=== PATIENT | female | born 1930 | race Caucasian/White ===

== ENCOUNTER 2017-10-12 19:57 | Inpatient (IN) | payer MEDICARE ==
--- NOTE | 2017-10-12 20:48 | RAD ---
INDICATION: Left hip fracture COMPARISON: None TECHNIQUE: An AP view of the pelvis and AP views of the hip in neutral and abducted position were obtained FINDINGS: Bones: There is an intratrochanteric fracture of the left femur with mild varus angulation. There is a component of the fracture extending from the lesser trochanter through the proximal lateral femoral diaphysis. No other fractures are evident. Joint spaces: The hips articulate normally. The joint spaces are preserved. SI joints/symphysis: The SI joints and symphysis are intact. Other: None IMPRESSION: PROXIMAL LEFT FEMORAL FRACTURE DESCRIBED
--- NOTE | 2017-10-12 20:49 | RAD ---
INDICATION: Hip fracture COMPARISON: None TECHNIQUE: A single PA view is submitted. FINDINGS: Bones/Soft Tissues: There are no acute bony findings. Cardiomediastinal: The cardiomediastinal silhouette is normal. Lungs: There are no infiltrates. Pleura: There are no pleural effusions. Other: None IMPRESSION: NO ACTIVE DISEASE.
[2017-10-12] MEDS ORDERED: HYDROcodone/ACETAMIN 5-325 MG* 1 TAB PO PRN (21:31)
[2017-10-12] MEDS ORDERED: Morphine INJ* 2 MG/ML 1 ML SYRINGE (TWO MG - NEW SYRINGE VERSION) IV PRN (21:31)
[2017-10-12] MEDS ORDERED: amLODIPine TAB* 5 MG PO ONE (21:31)
[2017-10-12] MEDS ORDERED: Ondansetron INJ* 2 MG/ML VIAL IV PRN (21:31)
[2017-10-12 21:59] LABS: Hematocrit 45 % (35-47); Hemoglobin 15.4 g/dl (12.0-16.0); Mean Corpuscular HGB Conc 34 g/dl (31-36); Mean Corpuscular Hemoglobin 31 pg (27-31); Mean Corpuscular Volume 91 fL (80-97); Mean Platelet Volume 9 um3 (7.4-10.4); Red Blood Count 4.96 10^6/ul (4.0-5.4); Red Cell Distribution Width 13 % (10.5-15); White Blood Count 13.7 10^3/ul (3.5-10.8)
[2017-10-12 22:14] LABS: Albumin 4.7 g/dL (3.2-5.2); BUN/Creatinine Ratio 19.1 (8-20); Calcium 9.8 mg/dL (8.6-10.3); EGFR African American 77.3 (>60); EGFR Non-African American 60.1 (>60); Globulin 2.7 g/dL (2-4); Potassium 3.4 mmol/L (3.5-5.0); Total Bilirubin 0.5 mg/dL (0.2-1.0); Total Protein 7.4 g/dL (6.4-8.9)
--- NOTE | 2017-10-12 22:14 | ED ---
Sangita Izquierdo Alfonso, scribed for Yasmani Quintana MD on 10/12/17 at 2207 . Adult Trauma - HPI Summary HPI Summary: This patient is an 87 year old F BIB[facility] to [facility] accompanied by son s/p fell out of elevator backwards onto floor landing on L hip at 19:00 today. Patient could not ambulate after the fall. Patient is not on blood thinners or any other medications. The patient rates the pain 1/10 in severity. Symptoms aggravated by movement. Symptoms alleviated by nothing. Patient reports left hip pain (pain does not radiate). Patient denies abdominal pain, dyspnea, wrist or elbow pain, head trauma, and LOC. - History of Current Complaint Chief Complaint: EDHipPelvisInjury Stated Complaint: FALL/LT HIP PAIN Time Seen by Provider: 10/12/17 20:01 Hx Obtained From: Patient Mechanism of Injury: Fall Ambulatory at the Scene: No Loss of Consciousness: no loss of consciousness Onset of Pain: Immediate, Post Accident Current Severity: Mild Pain Intensity: 1 Pain Scale Used: 0-10 Numeric Aggravating Factor(s): Movement Alleviating Factor(s): Nothing Associated Signs & Symptoms: Positive: Other: - left hip pain (pain does not radiate). Patient denies abdominal pain, dyspnea, wrist or elbow pain, head trauma, and LOC. - Allergy/Home Medications Allergies/Adverse Reactions: Allergies Allergy/AdvReac Type Severity Reaction Status Date / Time Cephalexin [From Keflex] Allergy Unknown Verified 10/12/17 21:38 Reaction Details Home Medications: Home Medications NK [No Home Medications Reported] 10/12/17 [History Confirmed 10/12/17] PMH/Surg Hx/FS Hx/Imm Hx Musculoskeletal History: Denies: Hx Osteoporosis Opthamlomology History: Denies: Hx Legally Blind Infectious Disease History: No Infectious Disease History: Denies: Traveled Outside the [place] in Last 30 Days - Family History Known Family History: Positive: Cardiac Disease, Other - Parkinson's - paternal - Social History Alcohol Use: Occasionally Hx Substance Use: No Substance Use Type: Reports: None Hx Tobacco Use: No Smoking Status (MU): Never Smoked Tobacco Review of Systems Negative: Fever Positive: Other - Negative dyspnea Negative: Abdominal Pain Positive: Other - fall, L hip pain negative - wrist pain Neurological: Other - negative LOC, trauma All Other Systems Reviewed And Are Negative: Yes Physical Exam - Summary Physical Exam Summary: General: well-appearing, no pain distress Skin: warm, color reflects adequate perfusion, dry Head: normal Eyes: EOMI, JOHANNY ENT: normal Neck: supple, nontender Respiratory: CTA, breath sounds present Cardiovascular: RRR Abdomen: soft, nontender Bowel: present Musculoskeletal: strength/ROM intact, tender L greater trochanter Neurological: normal, sensory/motor intact, A&O x3 Psychological: affect/mood appropriate Triage Information Reviewed: Yes Vital Signs On Initial Exam: Initial Vitals Temp Pulse Resp BP Pulse Ox 97.6 F 73 18 197/68 99 10/12/17 20:02 10/12/17 20:02 10/12/17 20:02 10/12/17 20:02 10/12/17 20:02 Vital Signs Reviewed: Yes - Jennyfer Coma Scale Coma Scale Total: 15 Diagnostics - Vital Signs Vital Signs Temp Pulse Resp BP Pulse Ox 10/12/17 20:02 97.6 F 73 18 197/68 99 - Laboratory Lab Results: Lab Results 10/12/17 10/12/17 Range/Units 21:45 21:45 WBC 13.7 H (3.5-10.8) 10^3/ul RBC 4.96 (4.0-5.4) 10^6/ul Hgb 15.4 (12.0-16.0) g/dl Hct 45 (35-47) % MCV 91 (80-97) fL MCH 31 (27-31) pg MCHC 34 (31-36) g/dl RDW 13 (10.5-15) % Plt Count 156 (150-450) 10^3/ul MPV 9 (7.4-10.4) um3 Neut % (Auto) 85.8 H (38-83) % Lymph % (Auto) 9.0 L (25-47) % [place] % (Auto) 4.7 (1-9) % Eos % (Auto) 0.3 (0-6) % Baso % (Auto) 0.2 (0-2) % Absolute Neuts (auto) 11.8 H (1.5-7.7) 10^3/ul Absolute Lymphs (auto) 1.2 (1.0-4.8) 10^3/ul Absolute Monos (auto) 0.6 (0-0.8) 10^3/ul Absolute Eos (auto) 0 (0-0.6) 10^3/ul Absolute Basos (auto) 0 (0-0.2) 10^3/ul Absolute Nucleated RBC 0 10^3/ul Nucleated RBC % 0 Blood Type Pending Antibody Screen Pending Result Diagrams: 10/12/17 21:45 Lab Statement: Any lab studies that have been ordered have been reviewed, and results considered in the medical decision making process. - Radiology Pelvis XR Radiology Interpretation Completed By: Radiologist - PROXIMAL LEFT FEMORAL FRACTURE DESCRIBED. ED Physician has reviewed this report. CXR Radiology Interpretation Completed By: Radiologist - NO ACTIVE DISEASE. ED physician has reviewed this report. - EKG 2133 EKG Rhythm: Sinus Rhythm - at [address] Segment: Normal Ectopy: None Adult Trauma Course/Dx - Course Course Of Treatment: DISCUSSED WITH DR SOFIA, ORTHOPEDICS. ADMIT HOSPITALIST. - Diagnoses Provider Diagnoses: Fracture of left hip Discharge - Discharge Plan Condition: Stable Disposition: ADMITTED TO [facility] Referrals: Reinaldo Cunningham MD [Primary Care Provider] - The documentation as recorded by the Sangita guajardo Alfonso accurately reflects the service I personally performed and the decisions made by me, Yasmani Quintana MD.
[2017-10-12 23:08] LABS: Urine Bacteria Absent (Absent)
[2017-10-12 23:33] LABS: Urine Bilirubin Negative (Negative); Urine Glucose Negative (Negative); Urine Nitrite Negative (Negative)
[2017-10-13] MEDS: Heparin VIAL(*) 5000 UNITS/ML VIAL (FIVE THOUSAND) SUBCUT SCH ×3 (00:41→13:14)
--- NOTE | 2017-10-13 03:53 | HP ---
CC: Dr. Cunningham; Dr. Ayers * HISTORY AND PHYSICAL: DATE OF ADMISSION: 10/12/17 PRIMARY CARE PROVIDER: Dr. Cunningham. ATTENDING PHYSICIAN WHILE IN THE HOSPITAL: Dr. Jewel Giraldo * (report dictated by Rupert Ledezma NP) CONSULTING ORTHOPEDIC SURGEON: Dr. Ayers. CHIEF COMPLAINT: Fall. HISTORY OF PRESENT ILLNESS: Ms. Lizbet Delarosa is an 87-year-old female patient. She is fairly healthy. She has a history of syncope in the past. According to her description, it sounds like it could be related to orthostatic hypotension, history of hypertension, and she has a history of a mitral valve prolapse. She comes into our ER today. She was at her alevism and she was in an elevator that has 2 doors and she was leaning up against what she thought was on to the pardo of the elevator, but unfortunately was the door and there was another person in the elevator, they had pressed the open door button and the door opened and she had fallen when the door had opened and she landed on her left side. She had no chest pain prior to or after the event. She said she did not pass out, she did not hit her head, she landed on her left hip. She remembers the entire fall. She thought that she was just going to be able to get up and walk home and hoping to go about her business, but she tried getting up and she had a significant amount of pain moving the leg at all. So, at that point, the bystander that was there had called the ambulance services and the patient was brought into the hospital. She says she is fairly healthy to her knowledge, she does not take any routine medications, and she says she typically walks up 3 flights of stairs daily and does not get chest pain or shortness of breath with this. The patient came in, was evaluated, ultimately found to have a left hip fracture and we were asked to evaluate for admission. PAST MEDICAL HISTORY: Significant for: 1. Hypertension. 2. Syncope. 3. Mitral valve prolapse. PAST SURGICAL HISTORY: She has had an oophorectomy, she has had an ovarian cyst removal, and she has had a tonsillectomy. MEDICATIONS: Home meds, she says currently she is not taking any medications at this point. ALLERGIES: She is allergic to KEFLEX and BAND-AID. FAMILY HISTORY: Mother had a history of dementia. Father had Parkinson's. SOCIAL HISTORY: She does not smoke, does not drink. If she does drink, it is very rarely. Surrogate decision maker is her son-in-law, Forest Andrews. REVIEW OF SYSTEMS: There is no documented fever. She denied having any significant weight change. No rhinorrhea, no sore throat, no thyroid enlargement. Denied having any chest pain. There was no orthopnea, no nocturnal dyspnea. There is no abdominal pain. No nausea, no vomiting. No dysuria, no frequency. There was no seizure, no loss of consciousness. No pruritus and no skin ulcerations. Review of 14 systems completed, all others negative. PHYSICAL EXAMINATION GENERAL: At this time, Ms. Lizbet Delarosa is an 87-year-old female patient. She appears to be well-nourished, well-developed. She is sitting in the ED stretcher. She does not appear to be in any acute distress. VITAL SIGNS: Blood pressure 197/68, pulse 73, respirations 18, O2 sat 99%, and temperature 97.6. HEENT: Head atraumatic and normocephalic. Eyes: EOMs intact. Sclerae anicteric, not pale. Throat: Oral mucosa appears to be moist. No oropharyngeal erythema. NECK: Supple. LUNGS: Clear to auscultation bilaterally. No wheezes, rales, or rhonchi. HEART: Sounds S1 and S2. Regular, rate, and rhythm. No murmurs, rubs, or gallops. ABDOMEN: Soft, flat, and nontender. Bowel sounds are present. EXTREMITIES: Pulses 2+ throughout. Distal CSM checks are intact to the left lower extremity and right lower extremity. The left lower extremity is rotated. NEUROLOGIC: The patient is awake, alert, and oriented x3. Tongue midline. Universal Grinder Operator are equal. No gross focal deficits. SKIN: Intact. DIAGNOSTIC STUDIES/LAB DATA: The labs today are pending. She did have a chest x-ray obtained today which revealed no active disease. She did have a hip and pelvis, x-ray which revealed proximal left femur fracture as described. EKG pending and labs are pending. Old medical records were reviewed. ASSESSMENT AND PLAN: Ms. Lizbet Delarosa is an 87-year-old female patient coming into the ED today with complaints of mechanical fall. She was found to have a left hip fracture. We were asked to evaluate for admission. She will be admitted under observation status for: 1. Left hip fracture. At this point, Dr. Ayers has evaluated the patient. The patient will require an open reduction internal fixation of that left hip. At this point, she does have a pretty good exercise capacity. She is able to walk up 3 flights of stairs with no chest pain or shortness of breath. She is pretty active. I think if her EKG and chest x-ray are stable, then she will be medically optimized with the exception that her blood pressure right now is in the 190s systolically, which could be from the pain, so I am going to try to get her pain under control. I am going to give her a little bit of Norvasc. My goal for her would try to be right between 140 to 150 range and will follow this closely, but if we can get the blood pressure down and the EKG and chest x- ray look okay, I do not think, we do not need any further optimization. 2. Hypertension. Again, I am going to give her 5 of Norvasc right now. She has not been on blood pressure meds because in the past she has had syncopal episodes with orthostasis. It sounds like according to her description but will try to get records from Dr. Cunningham to help us with that. I do not want to be too aggressive with her blood pressure medications, as I do not want her to synopsize, so I would like to get her down to 140 to 150 range if possible. 3. Mitral valve prolapse. At this point, not an active issue. Follow with primary. 4. DVT prophylaxis. She is a high risk. She will be placed on heparin subcu. 5. Code status. Full code. 6. Fluids, electrolytes, and nutrition. She can have a heart-healthy diet. TIME SPENT: On admission 60 minutes, greater than half the time was spent face- to- face with the patient obtaining the history and physical, other half the time spent going over the plan of care with the patient, implementing the plan of care. I did discuss the plan of care with my attending, Dr. Giraldo; he is in agreement. RUPERT LEDEZMA, MELLISA [id number]/[facility] #: [id number] [place]
--- NOTE | 2017-10-13 03:53 | CONS ---
CONSULTATION NOTE: DATE OF CONSULT: 10/12/17 REASON FOR CONSULTATION: Left hip fracture. HISTORY OF PRESENT ILLNESS: The patient is an 87-year-old woman who lives alone in the [facility] [address], with ambulation without assistive device, who presents to the emergency department at [facility] this evening, status post a fall at 7 p.m. in an elevator. The patient states that she was in an elevator with doors opening on either side. She was leaning against one door and did not realize that it was a door in fact. When the door opened, she fell and landed on her left hip. The patient was brought in by ambulance when she had difficulty bearing any weight on that left lower extremity. No history of left hip pain. The patient presents to the emergency department with her son-in-law, who is a local primary care physician. The patient has no other complaints of other areas of body pain. Denies head or neck trauma, loss of consciousness with the fall. PAST MEDICAL HISTORY: Hypertension, mitral valve prolapse, history of syncopal episodes, thought to be orthostatic hypotension. PAST SURGICAL HISTORY: Excision of ovarian cyst, oophorectomy. MEDICATIONS: None. ALLERGIES: Question of KEFLEX allergy, unknown reaction. SOCIAL HISTORY: Lives alone. Walks up 3 flights of stairs per day without any difficulty. No assistive device. She is very active with a large pilot station of friends. Multiple community type and social events, although no sports described. PHYSICAL EXAMINATION: At 8:02 p.m. on October 12, the vitals were 97.6 degrees Fahrenheit, heart rate 73, blood pressure 197/68, respiratory rate 18, O2 saturation 99% on room air. In no acute distress, alert and oriented, appropriate mood and affect, appropriate dress and hygiene, gait was not assessed as the patient should be nonweightbearing in all 4 extremities, well coordinated bilateral upper and lower extremities. The patient's left hip has no significant soft tissue swelling or bruising. Skin is intact. All 4 extremities neurovascularly intact distally. Pain with passive range of motion of the left hip. LABORATORY DATA: No labs obtained yet. IMAGING: Three x-ray views of the left hip revealed a left hip intertrochanteric fracture with subtrochanteric extension. The hip joint is located. ASSESSMENT: Left hip intertrochanteric fracture with subtrochanteric extension. PLAN: 1. The patient will be admitted to the hospitalist service. 2. The patient will require open reduction and internal fixation of the left hip fracture consisting of a nail and screws. Described a procedure briefly to the patient and her son-in-law, who is a local primary care physician. 3. Appropriate labs and medical workup will be obtained, although given the patient's general fitness, lack of medical problems do not anticipate much delay , required for additional medical workup. 4. The patient should be n.p.o. after midnight. 5. The patient will require open reduction and internal fixation left hip with intramedullary nail, long. 6. With regards to the timing of the procedure, this should be done when the patient is deemed to be medically optimized by the hospitalist service and when surgeon and operating room are available, within 48 hours from fracture. I told the patient and her son-in-law that I could do the surgery after clinic tomorrow evening. Another possibility would be that I could do it around noon on Tuesday or one of my partners could do it earlier than I tomorrow. [id number]/[facility] #: [id number] [facility] CENTERRaymond
[2017-10-13] MEDS: Acetaminophen TAB* 325 MG PO PRN ×2 (05:19→13:08)
[2017-10-13 05:28] LABS: Hematocrit 43 % (35-47); Hemoglobin 14.7 g/dl (12.0-16.0); Mean Corpuscular HGB Conc 34 g/dl (31-36); Mean Corpuscular Hemoglobin 31 pg (27-31); Mean Corpuscular Volume 91 fL (80-97); Mean Platelet Volume 9 um3 (7.4-10.4); Red Blood Count 4.74 10^6/ul (4.0-5.4); Red Cell Distribution Width 13 % (10.5-15); White Blood Count 13.5 10^3/ul (3.5-10.8)
[2017-10-13 05:50] LABS: BUN/Creatinine Ratio 18.4 (8-20); Calcium 9.1 mg/dL (8.6-10.3); EGFR African American 92.8 (>60); EGFR Non-African American 72.2 (>60); Potassium 3.5 mmol/L (3.5-5.0)
--- NOTE | 2017-10-13 09:56 | PN ---
Progress Note - Progress Note Date of Service: 10/13/17 SOAP: Subjective: []Patient seen at bedside. She reports well controlled pain as long as she is still in bed. No chest pain, shortness of breath, dizziness or nausea. She is NPO for an ORIF today for left intertrochanteric fracture with extension into subtrochanteric region. Objective: [] Vital Signs Temp 97.8 F 10/13/17 07:37 Pulse 72 10/13/17 07:37 Resp 18 10/13/17 08:00 BP 146/57 10/13/17 07:37 Pulse Ox 96 10/13/17 07:37 Intake & Output 10/12/17 10/13/17 10/13/17 18:59 06:59 18:59 Intake Total 0 Output Total 1700 Balance -1700 Weight 134 lb 134 lb Intake: Oral 0 Output: Wells 900 Residual 800 Wells 16 Fr 800 Laboratory Last Values WBC 13.5 10^3/ul (3.5-10.8) H 10/13/17 05:11 RBC 4.74 10^6/ul (4.0-5.4) 10/13/17 05:11 Hgb 14.7 g/dl (12.0-16.0) 10/13/17 05:11 Hct 43 % (35-47) 10/13/17 05:11 MCV 91 fL (80-97) 10/13/17 05:11 MCH 31 pg (27-31) 10/13/17 05:11 MCHC 34 g/dl (31-36) 10/13/17 05:11 RDW 13 % (10.5-15) 10/13/17 05:11 Plt Count 154 10^3/ul (150-450) 10/13/17 05:11 MPV 9 um3 (7.4-10.4) 10/13/17 05:11 Neut % (Auto) 86.4 % (38-83) H 10/13/17 05:11 Lymph % (Auto) 8.7 % (25-47) L 10/13/17 05:11 [place] % (Auto) 4.5 % (1-9) 10/13/17 05:11 Eos % (Auto) 0 % (0-6) 10/13/17 05:11 Baso % (Auto) 0.4 % (0-2) 10/13/17 05:11 Absolute Neuts (auto) 11.6 10^3/ul (1.5-7.7) H 10/13/17 05:11 Absolute Lymphs (auto) 1.2 10^3/ul (1.0-4.8) 10/13/17 05:11 Absolute Monos (auto) 0.6 10^3/ul (0-0.8) 10/13/17 05:11 Absolute Eos (auto) 0 10^3/ul (0-0.6) 10/13/17 05:11 Absolute Basos (auto) 0.1 10^3/ul (0-0.2) 10/13/17 05:11 Absolute Nucleated RBC 0 10^3/ul 10/13/17 05:11 Nucleated RBC % 0 10/13/17 05:11 INR (Anticoag Therapy) 0.95 (0.77-1.02) 10/13/17 05:11 APTT 27.9 seconds (26.0-36.3) 10/12/17 21:45 Sodium 134 mmol/L (133-145) 10/13/17 05:11 Potassium 3.5 mmol/L (3.5-5.0) 10/13/17 05:11 Chloride 102 mmol/L (101-111) 10/13/17 05:11 Carbon Dioxide 24 mmol/L (22-32) 10/13/17 05:11 Anion Gap 8 mmol/L (2-11) 10/13/17 05:11 BUN 14 mg/dL (6-24) 10/13/17 05:11 Creatinine 0.76 mg/dL (0.51-0.95) 10/13/17 05:11 Est GFR ( Amer) 92.8 (>60) 10/13/17 05:11 Est GFR (Non-Af Amer) 72.2 (>60) 10/13/17 05:11 BUN/Creatinine Ratio 18.4 (8-20) 10/13/17 05:11 Glucose 148 mg/dL (70-100) H 10/13/17 05:11 Calcium 9.1 mg/dL (8.6-10.3) 10/13/17 05:11 Total Bilirubin 0.50 mg/dL (0.2-1.0) 10/12/17 21:45 AST 26 U/L (13-39) 10/12/17 21:45 ALT 19 U/L (7-52) 10/12/17 21:45 Alkaline Phosphatase 59 U/L (34-104) 10/12/17 21:45 Total Protein 7.4 g/dL (6.4-8.9) 10/12/17 21:45 Albumin 4.7 g/dL (3.2-5.2) 10/12/17 21:45 Globulin 2.7 g/dL (2-4) 10/12/17 21:45 Albumin/Globulin Ratio 1.7 (1-3) 10/12/17 21:45 Urine Color Straw 10/12/17 22:50 Urine Appearance Clear 10/12/17 22:50 Urine pH 7.0 (5-9) 10/12/17 22:50 Ur Specific [place] 1.009 (1.010-1.030) L 10/12/17 22:50 Urine Protein Negative (Negative) 10/12/17 22:50 Urine Ketones Trace (Negative) H 10/12/17 22:50 Urine Blood 1+ (Negative) H 10/12/17 22:50 Urine Nitrate Negative (Negative) 10/12/17 22:50 Urine Bilirubin Negative (Negative) 10/12/17 22:50 Urine Urobilinogen Negative (Negative) 10/12/17 22:50 Ur Leukocyte Esterase Negative (Negative) 10/12/17 22:50 Urine WBC (Auto) Absent (Absent) 10/12/17 22:50 Urine RBC (Auto) 3+(>10/hpf) (Absent) H 10/12/17 22:50 Ur Squamous Epith Cells Present (Absent) H 10/12/17 22:50 Urine Bacteria Absent (Absent) 10/12/17 22:50 Urine Glucose Negative (Negative) 10/12/17 22:50 Urine Ascorbic Acid * (Negative) H 10/12/17 22:50 Blood Type AB Positive 10/12/17 21:45 Antibody Screen Negative 10/12/17 21:45 General: Well appearing, NAD. Calm and cooperative LLE: No significant soft tissue swelling over left hip, no bruising or open lesions. No tenderness to gentle palpation of left hip and femur. BL LE: calves supple and nontender without erythema, edema or palpable cords. Sensation intact distally. DF/PF intact. DP/PT pulses 2+ Assessment: []left intertrochanteric fracture with extension into subtrochanteric region Plan: []NPO NWB LLE Cleared for surgery today per Dr. Cunningham <Milana Dela Cruz - Last Filed: 10/13/17 11:57> - Progress Note SOAP: Subjective: Optimized/cleared by Dr. Cunningham. NPO p midnight. Seen in pre-op holding. Objective: NAD LLE - externally rotated - swelling left hip - pain with PROM hip - NVID Assessment: HD 2 left IT fracture with subtroch extension Plan: - Consent done - To OR for ORIF left hip <Fritz Ayers - Last Filed: 10/13/17 17:03>
--- NOTE | 2017-10-13 11:11 | PN ---
Subjective - Subjective Reason for Note: Progress Note History: I reviewed her presentation with the patient and the H and P provided by Rupert Ledezma NP. She fell out of an elevator not realizing there were 2 doors. She has sustained an intertrochanteric fracture of her left hip. She is due for surgical correction. She did not lose consciousness and did not hit her head or injure herself elsewhere She has had no other new medical problems recently. Active Problems: Active Problems Fall (Acute) Intertrochanteric fracture of left hip (Acute) S72.142A Allergic asthma (Chronic) J45.909 Essential hypertension (Chronic) I10 Hypercholesterolemia (Chronic) E78.00 Impaired fasting glucose (Chronic) R73.01 Impairment of balance (Chronic) R26.89 Mitral valve prolapse (Chronic) I34.1 Osteopenia (Chronic) M85.80 Vitamin B12 deficiency (Chronic) E53.8 Vitamin D deficiency (Chronic) E55.9 Current Medications: Current Medications Acetaminophen (Tylenol Tab*) 650 mg PO Q4H PRN PRN Reason: FEVER/PAIN Last Admin: 10/13/17 05:19 Dose: 650 mg Hydrocodone Bitart/Acetaminophen ([place] 5-325 Tab*) 1 tab PO Q6H PRN PRN Reason: PAIN Heparin Sodium (Porcine) (Heparin Vial(*)) 5,000 units SUBCUT Q8HR [facility] Last Admin: 10/13/17 05:32 Dose: Not Given Lactated Ringer's (Lactated Ringers 1000 Ml Bag*) 1,000 mls @ 75 mls/hr IV PER RATE [facility] Last Admin: 10/13/17 10:19 Dose: 75 mls/hr Morphine Sulfate (Morphine Inj (Syringe)*) 2 mg IV Q4H PRN PRN Reason: PAIN - MILD Ondansetron HCl (Zofran Inj*) 4 mg IV Q6H PRN PRN Reason: NAUSEA - Review of Systems Dermatology: Rash: No Eyes: Negative: Change in Vision Pulmonary: Negative: Cough, Sputum, Respiratory Distress, Shortness of Breath Cardiology: Negative: Chest Pain, Shortness of Breath, Palpitations, Swelling of Ankles Gastroenterology: Negative: Abdominal Pain, Nausea, Vomiting, Change in Bowel Habits Neurology: Positive: Change in Balancing - fdc Negative: Headache, Numbness\Paresthesiae, Unexplained Weakness, Hx of Stroke \TIA, Hx of Seizures Home Medications: Home Medications Medication Instructions Recorded Confirmed Type NK [No Home Medications Reported] 10/12/17 10/12/17 History Allergies: Allergies Allergy/AdvReac Type Severity Reaction Status Date / Time Cephalexin [From Keflex] Allergy Unknown Verified 10/12/17 21:38 Reaction Details Objective - Vital Signs Vital Signs: Vital Signs 10/12/17 10/12/17 10/13/17 22:16 23:14 00:05 Temperature 99.7 F 98.5 F Pulse Rate 75 72 71 Respiratory 18 18 16 Rate Blood Pressure 172/68 163/66 143/60 (mmHg) O2 Sat by Pulse 97 97 99 Oximetry 10/13/17 10/13/17 10/13/17 01:35 03:47 07:37 Temperature 98.0 F 97.8 F Pulse Rate 77 72 Respiratory 16 16 16 Rate Blood Pressure 138/57 146/57 (mmHg) O2 Sat by Pulse 97 96 Oximetry 10/13/17 08:00 Temperature Pulse Rate Respiratory 16 Rate Blood Pressure (mmHg) O2 Sat by Pulse Oximetry - Intake and Output Intake and Output: Intake & Output 10/10/17 10/11/17 10/12/17 10/13/17 11:59 11:59 11:59 11:59 Intake Total 0 Output Total 1700 Balance -1700 Weight 134 lb Intake: Oral 0 Output: Wells 900 Residual 800 Wells 16 Fr 800 Intake and Output Start: 10/12/17 22: 42 Freq: DAILY@0600,1400,2200 Status: Active Protocol: Document 10/13/17 05:25 [id number] (Rec: 10/13/17 05:26 [id number]) - Physical Exam General Physical Exam Comment: warm, well perfused. She is hemodynamically stable. She is oriented x 3 and conversational General: No Cyanosis, No Anemia, No Jaundice, No Clubbing Eye Exam: bilateral: EOMI Skin: Normal: Rash Lungs and Chest: Yes: Chest Expansion Full, Chest Expansion Symetrica, Percussion Note Resonant, Vessicular Breath Sounds. No: Crackles, Wheezes Heart Rate and Rhythm: Regular JVP: Not Elevated Additional Cardiovascular: Yes: Normal Heart Sounds. No: Heart Murmur, Pedal Edema Abdominal Exam: Yes: Soft, Bowel Sounds Present. No: Distention, Hepatomegaly, Abdominal Tenderness - Extremities Posterior Tibial Pulse: Bilateral Normal Dorsalis Pedis Pulses: Bilateral Normal Cranial Nerves II-XII Intact: Yes - Neuro Orientation: A/O x3 Speech: Normal Results - Results Lab Results: Laboratory Results - last 24 hr 10/12/17 10/12/17 10/12/17 21:45 21:45 21:45 WBC 13.7 H RBC 4.96 Hgb 15.4 Hct 45 MCV 91 MCH 31 MCHC 34 RDW 13 Plt Count 156 MPV 9 Neut % (Auto) 85.8 H Lymph % (Auto) 9.0 L [place] % (Auto) 4.7 Eos % (Auto) 0.3 Baso % (Auto) 0.2 Absolute Neuts (auto) 11.8 H Absolute Lymphs (auto) 1.2 Absolute Monos (auto) 0.6 Absolute Eos (auto) 0 Absolute Basos (auto) 0 Absolute Nucleated RBC 0 Nucleated RBC % 0 INR (Anticoag Therapy) 0.88 APTT 27.9 Sodium Potassium Chloride Carbon Dioxide Anion Gap BUN Creatinine Est GFR ( Amer) Est GFR (Non-Af Amer) BUN/Creatinine Ratio Glucose Calcium Total Bilirubin AST ALT Alkaline Phosphatase Total Protein Albumin Globulin Albumin/Globulin Ratio Urine Color Urine Appearance Urine pH Ur Specific [place] Urine Protein Urine Ketones Urine Blood Urine Nitrate Urine Bilirubin Urine Urobilinogen Ur Leukocyte Esterase Urine WBC (Auto) Urine RBC (Auto) Ur Squamous Epith Cells Urine Bacteria Urine Glucose Urine Ascorbic Acid Blood Type AB Positive Antibody Screen Negative 10/12/17 10/12/17 10/13/17 21:45 22:50 05:11 WBC 13.5 H RBC 4.74 Hgb 14.7 Hct 43 MCV 91 MCH 31 MCHC 34 RDW 13 Plt Count 154 MPV 9 Neut % (Auto) 86.4 H Lymph % (Auto) 8.7 L [place] % (Auto) 4.5 Eos % (Auto) 0 Baso % (Auto) 0.4 Absolute Neuts (auto) 11.6 H Absolute Lymphs (auto) 1.2 Absolute Monos (auto) 0.6 Absolute Eos (auto) 0 Absolute Basos (auto) 0.1 Absolute Nucleated RBC 0 Nucleated RBC % 0 INR (Anticoag Therapy) APTT Sodium 135 Potassium 3.4 L Chloride 100 L Carbon Dioxide 26 Anion Gap 9 BUN 17 Creatinine 0.89 Est GFR ( Amer) 77.3 Est GFR (Non-Af Amer) 60.1 BUN/Creatinine Ratio 19.1 Glucose 138 H Calcium 9.8 Total Bilirubin 0.50 AST 26 ALT 19 Alkaline Phosphatase 59 Total Protein 7.4 Albumin 4.7 Globulin 2.7 Albumin/Globulin Ratio 1.7 Urine Color Straw Urine Appearance Clear Urine pH 7.0 Ur Specific [place] 1.009 L Urine Protein Negative Urine Ketones Trace H Urine Blood 1+ H Urine Nitrate Negative Urine Bilirubin Negative Urine Urobilinogen Negative Ur Leukocyte Esterase Negative Urine WBC (Auto) Absent Urine RBC (Auto) 3+(>10/hpf) H Ur Squamous Epith Cells Present H Urine Bacteria Absent Urine Glucose Negative Urine Ascorbic Acid * H Blood Type Antibody Screen 10/13/17 10/13/17 05:11 05:11 WBC RBC Hgb Hct MCV MCH MCHC RDW Plt Count MPV Neut % (Auto) Lymph % (Auto) [place] % (Auto) Eos % (Auto) Baso % (Auto) Absolute Neuts (auto) Absolute Lymphs (auto) Absolute Monos (auto) Absolute Eos (auto) Absolute Basos (auto) Absolute Nucleated RBC Nucleated RBC % INR (Anticoag Therapy) 0.95 APTT Sodium 134 Potassium 3.5 Chloride 102 Carbon Dioxide 24 Anion Gap 8 BUN 14 Creatinine 0.76 Est GFR ( Amer) 92.8 Est GFR (Non-Af Amer) 72.2 BUN/Creatinine Ratio 18.4 Glucose 148 H Calcium 9.1 Total Bilirubin AST ALT Alkaline Phosphatase Total Protein Albumin Globulin Albumin/Globulin Ratio Urine Color Urine Appearance Urine pH Ur Specific [place] Urine Protein Urine Ketones Urine Blood Urine Nitrate Urine Bilirubin Urine Urobilinogen Ur Leukocyte Esterase Urine WBC (Auto) Urine RBC (Auto) Ur Squamous Epith Cells Urine Bacteria Urine Glucose Urine Ascorbic Acid Blood Type Antibody Screen Radiology Results: Patient Name: HEAVEN REDDY Medical Record#: [id number] Ordering Physician: Yasmani Quintana MD Acct.#: [id number] : 1930 Age: 87 Sex: F Location: EMERGENCY DEPARTMENT Exam Date: 10/12/172024 ADM Status: REG ER Order Information: HIP LEFT 2 VIEWS AND PELVIS Accession Number: [id number] CPT: 23641 INDICATION: Left hip fracture COMPARISON: None TECHNIQUE: An AP view of the pelvis and AP views of the hip in neutral and abducted position were obtained FINDINGS: Bones: There is an intratrochanteric fracture of the left femur with mild varus angulation. There is a component of the fracture extending from the lesser trochanter through the proximal lateral femoral diaphysis. No other fractures are evident. Joint spaces: The hips articulate normally. The joint spaces are preserved. SI joints/symphysis: The SI joints and symphysis are intact. Other: None IMPRESSION: PROXIMAL LEFT FEMORAL FRACTURE DESCRIBED <Electronically signed by Yasmani Miguel MD in [place]> 10/12/172043 Dictated By: Yasmani Miguel MD Dictated Date/Time: 10/12/172043 Transcribed Date/Time: 10/12/172041 Copy to: CC:Reinaldo Cunningham MD; Yasmani Quintana MD Imaging - [facility] Imaging - [facility] [address] [place] [address] ph [phone]) ph ([phone]) ph ([phone]) 1 of 1 Assessment - Problem List Assessment: Patient Problems Fall (Acute) Intertrochanteric fracture of left hip (Acute) Allergic asthma (Chronic) Essential hypertension (Chronic) Hypercholesterolemia (Chronic) Impaired fasting glucose (Chronic) Impairment of balance (Chronic) Mitral valve prolapse (Chronic) Osteopenia (Chronic) Vitamin B12 deficiency (Chronic) Vitamin D deficiency (Chronic) Plan: Fall (Acute)/Intertrochanteric fracture of left hip (Acute) This was a mechanical fall. She has sustained a left intertrochanteric hip fracture. This is going to be surgical repaired. She is healthy and is at low cardiovascular and pulmonary risk. She requires no further cardiac or other risk stratification. She should not have her surgery delayed and it would be best performed WILFRIDO Allergic asthma (Chronic) Not exacerbated Essential hypertension (Chronic) Acceptable control Hypercholesterolemia (Chronic) secondary diagnosis Impaired fasting glucose (Chronic) secondary diagnosis Impairment of balance (Chronic) secondary diagnosis Mitral valve prolapse (Chronic) secondary diagnosis Osteopenia (Chronic)secondary diagnosis - to be addressed following recover Vitamin B12 deficiency (Chronic) secondary diagnosis Vitamin D deficiency (Chronic)secondary diagnosis I discussed the above with the patient and she agrees to the above. She will not sign a MOLST until after her acute surgical management.
[2017-10-13] MEDS ORDERED: KETAMINE HCL* 50 MG/ML 10 ML VIAL ONE (15:52)
[2017-10-13] MEDS ORDERED: Phenylephrine INJ* 10 MG/ML 1 ML VIAL (10 MG) ONE (15:52)
[2017-10-13] MEDS ORDERED: Midazolam* 1 MG/ML 10 ML VIAL (10 MG) ONE (15:52)
[2017-10-13] MEDS ORDERED: fentaNYL* 50 MCG/ML 2 ML VIAL (100 MCG VIAL) ONE (15:52)
[2017-10-13] MEDS ORDERED: Ondansetron INJ* 2 MG/ML VIAL ONE ×2 (15:52→16:17)
[2017-10-13] MEDS ORDERED: Dexamethasone IV* 4 MG/ML 1 ML (4 MG) ONE (15:52)
[2017-10-13] MEDS ORDERED: Propofol* 10 MG/ML 20 ML BTL IV PUSH ONE (15:52)
[2017-10-13] MEDS ORDERED: Lidocaine 2% PF * 5 ML VIAL ONE (15:52)
[2017-10-13] MEDS ORDERED: Ketorolac INJ* 30 MG/ML 1 ML VIAL ONE (15:52)
[2017-10-13] MEDS ORDERED: Famotidine IV* 10 MG/ML 2 ML (20 mg) ONE (16:17)
[2017-10-13] MEDS ORDERED: Famotidine IV* 10 MG/ML 2 ML (20 mg) IV ONE (16:18)
[2017-10-13] MEDS ORDERED: Buffered Lidocaine 0.9% SYRIN* 5 ML/SYR SYRINGE INTRADERM ONE (16:18)
[2017-10-13] MEDS ORDERED: Ondansetron INJ* 2 MG/ML VIAL IV ONE (16:18)
[2017-10-13] MEDS ORDERED: Clindamycin 900 MG IVPREMIX(* 900 MG/50 ML SDV IV ONE (16:57)
[2017-10-13] MEDS ORDERED: EPHEDrine (Pressors)* 50 MG/ML VIAL ONE (18:06)
[2017-10-13] MEDS ORDERED: Metoclopramide IV* 5 MG/ML 2 ML VIAL IV PRN (18:22)
[2017-10-13] MEDS ORDERED: fentaNYL* 50 MCG/ML 2 ML VIAL (100 MCG VIAL) IV PRN (18:22)
[2017-10-13] MEDS ORDERED: Bupivacaine 0.25% SDV* 30 ML ONE (19:05)
[2017-10-13] MEDS ORDERED: Phenylephrine INJ* 50 MG in NS 0.9% 250 ML* 245 ML IV PRN (19:13)
[2017-10-14] MEDS: Clindamycin 600 MG IVPREMIX(* 600 MG/50 ML SDV IV SCH ×3 (02:31→17:44)
--- NOTE | 2017-10-14 06:20 | HP ---
H&P (Free Text) History and Physical: LATE ENTRY 10/12/20172114 Mrs Lizbet Delarosa is an 87F HX HTN, syncope presents with a L hip FX 2nd mechanical fall. She will be admitted for surgical management & pre-op medical optimization.
--- NOTE | 2017-10-14 07:40 | RAD ---
INDICATION: Left hip fracture, fall COMPARISONS: October 12, 2017 TECHNIQUE: Fluoroscopy was provided for a surgical procedure. Total fluoroscopy time is: 129.4 seconds FINDINGS: Spot images demonstrate internal fixation of the femur IMPRESSION: FLUOROSCOPY WAS PROVIDED FOR A SURGICAL PROCEDURE CPT II Codes: 6045F
--- NOTE | 2017-10-14 08:11 | PN ---
Subjective - Subjective Reason for Note: Progress Note History: She tolerated the left hip surgery yesterday evening. She has had some cookies to eat and feels fine. Pain control while lying in bed is good, however, she is concerned about analgesia as she had a hypotensive episode on an opioid in the past. I confirmed this was hydrocodone ([employer]). She is concerned her BP was a little low this morning. There are no other symptoms. Resp: no cough/sputum/dyspnea CVS: No chest pain/palpitations GI: No nausea, vomiting or bowel issues : Wells Active Problems: Active Problems Fall (Acute) Intertrochanteric fracture of left hip (Acute) S72.142A Allergic asthma (Chronic) J45.909 Essential hypertension (Chronic) I10 Hypercholesterolemia (Chronic) E78.00 Impaired fasting glucose (Chronic) R73.01 Impairment of balance (Chronic) R26.89 Mitral valve prolapse (Chronic) I34.1 Osteopenia (Chronic) M85.80 Vitamin B12 deficiency (Chronic) E53.8 Vitamin D deficiency (Chronic) E55.9 Current Medications: Current Medications Acetaminophen (Tylenol Tab*) 650 mg PO Q4H PRN PRN Reason: FEVER/PAIN Last Admin: 10/13/17 13:08 Dose: 650 mg Hydrocodone Bitart/Acetaminophen ([place] 5-325 Tab*) 1 tab PO Q6H PRN PRN Reason: PAIN Enoxaparin Sodium (Lovenox(*)) 40 mg SUBCUT Q24H [facility] Lactated Ringer's (Lactated Ringers 1000 Ml Bag*) 1,000 mls @ 75 mls/hr IV PER RATE [facility] Last Admin: 10/14/17 05:39 Dose: 75 mls/hr Clindamycin HCl/Dextrose (Cleocin 600 Mg Ivpremix(*) Sdv) 600 mg in 50 mls @ 100 mls/hr IV Q8H [facility] Last Admin: 10/14/17 02:31 Dose: 100 mls/hr Morphine Sulfate (Morphine Inj (Syringe)*) 2 mg IV Q4H PRN PRN Reason: PAIN - MILD Ondansetron HCl (Zofran Inj*) 4 mg IV Q6H PRN PRN Reason: NAUSEA Home Medications: Home Medications Medication Instructions Recorded Confirmed Type NK [No Home Medications Reported] 10/12/17 10/12/17 History Allergies: Allergies Allergy/AdvReac Type Severity Reaction Status Date / Time Cephalexin [From Keflex] Allergy Unknown Verified 10/12/17 21:38 Reaction Details Objective - Vital Signs Vital Signs: Vital Signs 10/13/17 10/13/17 10/13/17 11:07 15:33 15:50 Temperature 98.9 F 98.0 F Pulse Rate 69 76 Respiratory 16 17 Rate Blood Pressure 143/58 155/65 (mmHg) O2 Sat by Pulse 97 97 97 Oximetry 10/13/17 10/13/17 10/13/17 19:37 19:40 19:45 Temperature 97.3 F Pulse Rate 76 70 71 Respiratory 16 16 15 Rate Blood Pressure 103/59 111/58 114/56 (mmHg) O2 Sat by Pulse 100 100 100 Oximetry 10/13/17 10/13/17 10/13/17 19:50 20:00 20:15 Temperature Pulse Rate 71 71 75 Respiratory 15 16 16 Rate Blood Pressure 113/51 110/53 108/51 (mmHg) O2 Sat by Pulse 99 96 96 Oximetry 10/13/17 10/13/17 10/13/17 20:30 20:45 21:00 Temperature Pulse Rate 74 67 69 Respiratory 16 16 16 Rate Blood Pressure 106/47 110/52 103/50 (mmHg) O2 Sat by Pulse 98 98 98 Oximetry 10/13/17 10/13/17 10/13/17 21:15 21:35 21:37 Temperature 97.8 F 97.8 F Pulse Rate 71 72 72 Respiratory 16 16 16 Rate Blood Pressure 109/47 123/52 123/52 (mmHg) O2 Sat by Pulse 98 97 97 Oximetry 10/13/17 10/13/17 10/13/17 21:45 21:56 21:57 Temperature Pulse Rate Respiratory 16 16 Rate Blood Pressure (mmHg) O2 Sat by Pulse 97 Oximetry 10/13/17 10/13/17 10/14/17 22:33 23:26 00:20 Temperature 98.4 F 98.5 F Pulse Rate 77 71 Respiratory 14 16 Rate Blood Pressure 124/57 124/57 (mmHg) O2 Sat by Pulse 97 96 97 Oximetry 10/14/17 10/14/17 10/14/17 01:32 03:22 07:43 Temperature 97.4 F 97.7 F 98.4 F Pulse Rate 73 68 66 Respiratory 16 16 16 Rate Blood Pressure 119/59 102/52 113/45 (mmHg) O2 Sat by Pulse 96 98 97 Oximetry - Intake and Output Intake and Output: Intake & Output 10/11/17 10/12/17 10/13/17 10/14/17 11:59 11:59 11:59 11:59 Intake Total 0 2100 Output Total 1700 1825 Balance -1700 275 Weight 134 lb Intake: IV Fluids 1940 LR 1378 Oral 0 160 Output: Wells 900 1525 Residual 800 Wells 16 Fr 800 Estimated Blood Loss 300 Intake and Output Start: 10/12/17 22: 42 Freq: DAILY@0600,1400,2200 Status: Active Protocol: Document 10/13/17 05:25 [id number] (Rec: 10/13/17 05:26 [id number]) Document 10/13/17 13:30 [id number] (Rec: 10/13/17 13:30 [id number] [id number]) Document 10/13/17 22:00 [id number] (Rec: 10/13/17 22:02 [id number] [id number]) Document 10/14/17 03:20 [id number] (Rec: 10/14/17 04:18 [id number] [id number]) Document 10/14/17 05:45 [id number] (Rec: 10/14/17 05:45 [id number]) - Physical Exam General: No Cyanosis, No Anemia, No Jaundice, No Clubbing Eye Exam: bilateral: EOMI Skin: Normal: Rash Lungs and Chest: Yes: Chest Expansion Full, Chest Expansion Symetrica, Percussion Note Resonant, Vessicular Breath Sounds. No: Crackles, Wheezes Heart Rate and Rhythm: Regular JVP: Not Elevated Additional Cardiovascular: Yes: Normal Heart Sounds. No: Heart Murmur, Pedal Edema Abdominal Exam: Yes: Soft, Bowel Sounds Present. No: Distention, Abdominal Tenderness - Extremities Cranial Nerves II-XII Intact: Yes Limbs: Normal Power, Normal Tone - Neuro Orientation: A/O x3 Psychiatric: Normal Speech: Normal Assessment - Problem List Assessment: Patient Problems Fall (Acute) Intertrochanteric fracture of left hip (Acute) Allergic asthma (Chronic) Essential hypertension (Chronic) Hypercholesterolemia (Chronic) Impaired fasting glucose (Chronic) Impairment of balance (Chronic) Mitral valve prolapse (Chronic) Osteopenia (Chronic) Vitamin B12 deficiency (Chronic) Vitamin D deficiency (Chronic) Plan: Fall (Acute)Intertrochanteric fracture of left hip (Acute) 1 day post operatively and she tolerated the procedure well. She will likely be mobilized today. Given her history of hypotension with hydrocodone, I will substitute codeine - however this may be a class effect and we should be careful. I will remove her Wells. I will refer PT and OT and for a PMRU consultation Allergic asthma (Chronic) secondary diagnosis inactive Essential hypertension (Chronic) secondary diagnosis - careful to be slow in helping her mobilize to prevent severe orthostatic hypotension Hypercholesterolemia (Chronic) secondary diagnosis Impaired fasting glucose (Chronic) secondary diagnosis Impairment of balance (Chronic) secondary diagnosis - important for rehab Mitral valve prolapse (Chronic) secondary diagnosis Osteopenia (Chronic) for active treatment Vitamin B12 deficiency (Chronic) secondary diagnosis Vitamin D deficiency (Chronic) secondary diagnosis She is doing very well post operatively. I spoke with the patient and her son Forest Andrews MD. They agree with the management plan.
[2017-10-14] MEDS: Codeine TAB* 30 MG PO PRN (09:12)
--- NOTE | 2017-10-14 11:34 | PN ---
Progress Note - Progress Note Date of Service: 10/14/17 SOAP: Subjective: 87 y/o female s/p ORIF 10/[address] Ayers. Patient feeling well, pain controlled, followed by Dr. Cunningham who recommended PMRU. VSS afebrile. NO questions/ concerns regarding surgery. Objective: General- Well appearing, NAD AO MSK- surgical dressing intact, no drainage noted, no induration, ecchymosiss, + DF/PF, sensation intact b/l LEs, neg bc b/l. Vital Signs Temp 98.4 F 10/14/17 07:43 Pulse 66 10/14/17 07:43 Resp 18 10/14/17 09:12 BP 113/45 10/14/17 07:43 Pulse Ox 97 10/14/17 07:43 Intake & Output 10/13/17 10/14/17 10/14/17 18:59 06:59 18:59 Intake Total 378 1722 440 Output Total 300 1525 0 Balance 78 197 440 Weight 60.781 kg Intake: IV Fluids 378 1562 LR 378 1000 Oral 0 160 440 Output: [place] 300 1225 0 Estimated Blood Loss 300 Assessment: stable 87 y/o female s/p ORIF 10/[address] Ayers. Plan: - Continue PT/ OT - Continue pain management - moreland to be removed - possible placement, continue to work with PT - dressing change tomorrow Active Medications Generic Name Dose Route Start Last Admin Trade Name Freq PRN Reason Stop Dose Admin Acetaminophen 650 mg 10/12/17 21:31 10/13/17 13:08 Tylenol Tab* PO 650 mg Q4H PRN Administration FEVER/PAIN Codeine Sulfate 30 mg 10/14/17 08:24 10/14/17 09:12 Codeine Tab* PO 30 mg Q4H PRN Administration PAIN Enoxaparin Sodium 40 mg 10/14/17 12:00 Lovenox(*) SUBCUT Q24H [facility] Clindamycin HCl/Dextrose 600 mg in 50 mls @ 100 mls/hr 10/14/17 02:00 09:12 Cleocin 600 Mg Ivpremix(*) Sdv IV 100 mls/hr Q8H [facility] Administration Lactated Ringer's 1,000 mls @ 75 mls/hr 10/14/17 08:25 Lactated Ringers 1000 Ml Bag* IV PER RATE [facility] Morphine Sulfate 2 mg 10/12/17 21:31 Morphine Inj (Syringe)* IV Q4H PRN PAIN - MILD Ondansetron HCl 4 mg 10/12/17 21:31 Zofran Inj* IV Q6H PRN NAUSEA <Sally Eckert - Last Filed: 10/14/17 11:31> - Progress Note SOAP: Subjective: Doing well. Worked with PT today. Objective: NAD. Comfortable-appearing. LLE - dressing c/d/i - nvid Assessment: POD 1 ORIF L hip intertrochanteric fx with subtroch extension Plan: - Lovenox, PT, OOB, pain control - Dispo - Dressing change on POD 3 to be replaced with a new foam tape dressing - f/u with me ~ 14 days postop <Fritz Ayers - Last Filed: 10/14/17 17:04>
[2017-10-14] MEDS: Enoxaparin(*) 40 MG/0.4 ML SYR SUBCUT SCH (12:27)
[2017-10-14] MEDS: Acetaminophen TAB* 325 MG PO PRN (17:12)
[2017-10-15] MEDS: Codeine TAB* 30 MG PO PRN ×2 (03:53→08:10)
[2017-10-15 05:12] LABS: Hematocrit 34 % (35-47); Hemoglobin 11.6 g/dl (12.0-16.0); Mean Corpuscular HGB Conc 35 g/dl (31-36); Mean Corpuscular Hemoglobin 32 pg (27-31); Mean Corpuscular Volume 92 fL (80-97); Mean Platelet Volume 10 um3 (7.4-10.4); Red Blood Count 3.65 10^6/ul (4.0-5.4); Red Cell Distribution Width 13 % (10.5-15); White Blood Count 9.6 10^3/ul (3.5-10.8)
--- NOTE | 2017-10-15 10:26 | PN ---
Subjective - Subjective Reason for Note: Progress Note History: She feels groggy from opioids and frustrated that PT was delayed because of breakfast. She has been out of bed and walking. I reviewed the OT and PT reports. She has no new symptoms Active Problems: Active Problems Fall (Acute) History of open reduction and internal fixation (ORIF) procedure (Acute) Z98.890 Intertrochanteric fracture of left hip (Acute) S72.142A Allergic asthma (Chronic) J45.909 Essential hypertension (Chronic) I10 Hypercholesterolemia (Chronic) E78.00 Impaired fasting glucose (Chronic) R73.01 Impairment of balance (Chronic) R26.89 Mitral valve prolapse (Chronic) I34.1 Osteopenia (Chronic) M85.80 Vitamin B12 deficiency (Chronic) E53.8 Vitamin D deficiency (Chronic) E55.9 Current Medications: Current Medications Acetaminophen (Tylenol Tab*) 650 mg PO Q4H PRN PRN Reason: FEVER/PAIN Last Admin: 10/14/17 17:12 Dose: 650 mg Codeine Sulfate (Codeine Tab*) 30 mg PO Q4H PRN PRN Reason: PAIN Last Admin: 10/15/17 08:10 Dose: 30 mg Enoxaparin Sodium (Lovenox(*)) 40 mg SUBCUT Q24H NAVI Last Admin: 10/14/17 12:27 Dose: 40 mg Lactated Ringer's (Lactated Ringers 1000 Ml Bag*) 1,000 mls @ 75 mls/hr IV PER RATE NAVI Morphine Sulfate (Morphine Inj (Syringe)*) 2 mg IV Q4H PRN PRN Reason: PAIN - MILD Ondansetron HCl (Zofran Inj*) 4 mg IV Q6H PRN PRN Reason: NAUSEA Home Medications: Home Medications Medication Instructions Recorded Confirmed Type NK [No Home Medications Reported] 10/12/17 10/12/17 History Allergies: Allergies Allergy/AdvReac Type Severity Reaction Status Date / Time Cephalexin [From Keflex] Allergy Unknown Verified 10/12/17 21:38 Reaction Details Objective - Vital Signs Vital Signs: Vital Signs 10/14/17 10/14/17 10/14/17 11:41 11:49 15:22 Temperature 98.5 F 97.7 F Pulse Rate 79 66 Respiratory 16 18 15 Rate Blood Pressure 127/46 107/46 (mmHg) O2 Sat by Pulse 96 100 Oximetry 12/22/17 12/22/17 12/22/17 19:21 19:25 23:30 Temperature 97.8 F 98.1 F Pulse Rate 69 68 Respiratory 17 16 16 Rate Blood Pressure 110/43 119/46 (mmHg) O2 Sat by Pulse 98 95 Oximetry 10/15/17 10/15/17 10/15/17 00:07 03:52 03:53 Temperature 97.9 F Pulse Rate 67 Respiratory 16 18 Rate Blood Pressure 122/53 (mmHg) O2 Sat by Pulse 95 96 Oximetry 10/15/17 10/15/17 10/15/17 07:16 07:17 08:00 Temperature 98.2 F Pulse Rate 66 Respiratory 18 16 18 Rate Blood Pressure 106/44 (mmHg) O2 Sat by Pulse 95 Oximetry 10/15/17 10/15/17 08:10 10:00 Temperature Pulse Rate Respiratory 18 16 Rate Blood Pressure (mmHg) O2 Sat by Pulse Oximetry - Intake and Output Intake and Output: Intake & Output 10/12/17 10/13/17 10/14/17 10/15/17 11:59 11:59 11:59 11:59 Intake Total 2540 1435 Output Total 1525 2125 Balance 1015 -690 Intake: IV Fluids 1940 LR 1378 IVPB 470 LR 470 Oral 600 965 Output: Urine 1925 Wells 1225 200 Estimated Blood Loss 300 ADLs: Meal Record Start: 10/12/17 22: 42 Freq: Status: Active Protocol: Document 10/14/17 10:47 [id number] (Rec: 10/14/17 10:47 [id number] SSU-C05) Document 10/14/17 13:40 [id number] (Rec: 10/14/17 13:41 [id number] SSU-C01) Document 10/15/17 09:40 [id number] (Rec: 10/15/17 09:40 [id number] SSU-C04) Intake and Output Start: 10/12/17 22: 42 Freq: DAILY@0600,1400,2200 Status: Active Protocol: Document 10/13/17 05:25 [id number] (Rec: 10/13/17 05:26 [id number] SSU-C09) Document 10/13/17 13:30 [id number] (Rec: 10/13/17 13:30 [id number] SSU-C01) Document 10/13/17 22:00 [id number] (Rec: 10/13/17 22:02 [id number] SSU-C05) Document 10/14/17 03:20 [id number] (Rec: 10/14/17 04:18 [id number] SSU-C11) Document 10/14/17 05:45 [id number] (Rec: 10/14/17 05:45 [id number] SSU-M06) Document 10/14/17 12:07 [id number] (Rec: 10/14/17 12:08 [id number] SSU-C02) Document 10/14/17 14:00 [id number] (Rec: 10/14/17 14:40 [id number] SSU-C01) Document 10/14/17 18:53 [id number] (Rec: 10/14/17 18:54 [id number] SSU-C11) Document 10/14/17 22:00 [id number] (Rec: 10/14/17 22:12 [id number] SSU-C11) Document 10/15/17 01:25 [id number] (Rec: 10/15/17 01:25 [id number] SSU-C09) Document 10/15/17 04:02 [id number] (Rec: 10/15/17 04:02 [id number] SSU-C10) Document 10/15/17 05:10 [id number] (Rec: 10/15/17 05:10 [id number] SSU-C09) - Physical Exam General: No Cyanosis, No Anemia, No Jaundice, No Clubbing Skin: Normal: Rash Lungs and Chest: Yes: Chest Expansion Full, Chest Expansion Symetrica, Percussion Note Resonant, Vessicular Breath Sounds. No: Crackles, Wheezes Heart Rate and Rhythm: Regular JVP: Not Elevated Additional Cardiovascular: Yes: Normal Heart Sounds. No: Heart Murmur, Pedal Edema Abdominal Exam: Yes: Soft, Bowel Sounds Present. No: Distention, Hepatomegaly - Extremities Cranial Nerves II-XII Intact: Yes Limbs: Normal Power, Normal Tone - Neuro Orientation: A/O x3 Speech: Normal Results - Results Lab Results: Laboratory Results - last 24 hr 12/23/17 04:53 WBC 9.6 RBC 3.65 L Hgb 11.6 L Hct 34 L MCV 92 MCH 32 H MCHC 35 RDW 13 Plt Count 125 L MPV 10 Neut % (Auto) 64.0 Lymph % (Auto) 25.0 [place] % (Auto) 9.6 H Eos % (Auto) 1.0 Baso % (Auto) 0.4 Absolute Neuts (auto) 6.1 Absolute Lymphs (auto) 2.4 Absolute Monos (auto) 0.9 H Absolute Eos (auto) 0.1 Absolute Basos (auto) 0 Absolute Nucleated RBC 0 Nucleated RBC % 0 Assessment - Problem List Assessment: Patient Problems Fall (Acute) History of open reduction and internal fixation (ORIF) procedure (Acute) Intertrochanteric fracture of left hip (Acute) Allergic asthma (Chronic) Essential hypertension (Chronic) Hypercholesterolemia (Chronic) Impaired fasting glucose (Chronic) Impairment of balance (Chronic) Mitral valve prolapse (Chronic) Osteopenia (Chronic) Vitamin B12 deficiency (Chronic) Vitamin D deficiency (Chronic) Plan: Fall (Acute)History of open reduction and internal fixation (ORIF) procedure ( Acute)Intertrochanteric fracture of left hip (Acute) She is doing well. PT suggests she is a good candidate for PMRU. Allergic asthma (Chronic) secondary diagnosis Essential hypertension (Chronic) secondary diagnosis Hypercholesterolemia (Chronic) secondary diagnosis Impaired fasting glucose (Chronic) secondary diagnosis Impairment of balance (Chronic) secondary diagnosis Mitral valve prolapse (Chronic) secondary diagnosis Osteopenia (Chronic) Current evidence based discussion suggests that bisphosphonates do not delay fracture healing. She agrees to this treatment: Injury. 2016 Oct;47 Suppl 1:S65-8. doi: 10.1016/D[address]-64[address](48)27215-8. How do bisphosphonates affect fracture healing? Wyatt SL1, Rufus CL2. Author information Abstract Bisphosphonates (BPs) have been in use for many years for the treatment of osteoporosis, multiple myeloma, Paget's disease, as well as a variety of other diseases in which there is reduced bone mineral density. Given that bisphosphonates inhibit bone resorption, an important stage of fracture healing ; this class of compounds has been widely studied in preclinical models regarding their influence on fracture healing. In animal models, bisphosphonate treatment is associated with a larger fracture callus, coincident with a delay in remodeling from primary woven bone to lamellar bone, but there is no delay in formation of the fracture callus. In humans, de jocelyn use of bisphosphonate therapy after fracture does not appear to have a significant effect on fracture healing. Rarely, patients with long term care administrator use of Bisphosphonates may develop an atypical fracture and delay in fracture healing has been observed. In summary, bisphosphonates appear safe for use in the setting of acute fracture management in the upper and lower extremity in humans. While much remains unknown about the effects on healing of long-term bisphosphonates, use prior to "typical" fracture, in the special case of atypical fracture, evidence suggests that bisphosphonates negatively influence healing. Vitamin B12 deficiency (Chronic) secondary diagnosis Vitamin D deficiency (Chronic) secondary diagnosis
--- NOTE | 2017-10-15 11:02 | PN ---
Progress Note - Progress Note Date of Service: 10/15/17 SOAP: Subjective: Pt lying comfortably in chair. States felt a little light headed this morning during PT. Denies N/T/F/C Objective: Dressing C/D/I. Calves soft, non tender. No edema. Sensation intact. 2+ DP pulses Vital Signs: Temp Pulse Resp BP Pulse Ox 98.2 F 61 16 114/46 93 10/15/17 07:17 10/15/17 10:38 10/15/17 10:00 10/15/17 10:38 10/15/17 10:38 Laboratory Last Values WBC 9.6 10^3/ul (3.5-10.8) 10/15/17 04:53 RBC 3.65 10^6/ul (4.0-5.4) L 10/15/17 04:53 Hgb 11.6 g/dl (12.0-16.0) L 10/15/17 04:53 Hct 34 % (35-47) L 10/15/17 04:53 MCV 92 fL (80-97) 10/15/17 04:53 MCH 32 pg (27-31) H 10/15/17 04:53 MCHC 35 g/dl (31-36) 10/15/17 04:53 RDW 13 % (10.5-15) 10/15/17 04:53 Plt Count 125 10^3/ul (150-450) L 10/15/17 04:53 MPV 10 um3 (7.4-10.4) 10/15/17 04:53 Neut % (Auto) 64.0 % (38-83) 10/15/17 04:53 Lymph % (Auto) 25.0 % (25-47) 10/15/17 04:53 [place] % (Auto) 9.6 % (1-9) H 10/15/17 04:53 Eos % (Auto) 1.0 % (0-6) 10/15/17 04:53 Baso % (Auto) 0.4 % (0-2) 10/15/17 04:53 Absolute Neuts (auto) 6.1 10^3/ul (1.5-7.7) 10/15/17 04:53 Absolute Lymphs (auto) 2.4 10^3/ul (1.0-4.8) 10/15/17 04:53 Absolute Monos (auto) 0.9 10^3/ul (0-0.8) H 10/15/17 04:53 Absolute Eos (auto) 0.1 10^3/ul (0-0.6) 10/15/17 04:53 Absolute Basos (auto) 0 10^3/ul (0-0.2) 10/15/17 04:53 Absolute Nucleated RBC 0 10^3/ul 10/15/17 04:53 Nucleated RBC % 0 10/15/17 04:53 INR (Anticoag Therapy) 0.95 (0.77-1.02) 10/13/17 05:11 APTT 27.9 seconds (26.0-36.3) 10/12/17 21:45 Sodium 134 mmol/L (133-145) 10/13/17 05:11 Potassium 3.5 mmol/L (3.5-5.0) 10/13/17 05:11 Chloride 102 mmol/L (101-111) 10/13/17 05:11 Carbon Dioxide 24 mmol/L (22-32) 10/13/17 05:11 Anion Gap 8 mmol/L (2-11) 10/13/17 05:11 BUN 14 mg/dL (6-24) 10/13/17 05:11 Creatinine 0.76 mg/dL (0.51-0.95) 10/13/17 05:11 Est GFR ( Amer) 92.8 (>60) 10/13/17 05:11 Est GFR (Non-Af Amer) 72.2 (>60) 10/13/17 05:11 BUN/Creatinine Ratio 18.4 (8-20) 10/13/17 05:11 Glucose 148 mg/dL (70-100) H 10/13/17 05:11 Calcium 9.1 mg/dL (8.6-10.3) 10/13/17 05:11 Total Bilirubin 0.50 mg/dL (0.2-1.0) 10/12/17 21:45 AST 26 U/L (13-39) 10/12/17 21:45 ALT 19 U/L (7-52) 10/12/17 21:45 Alkaline Phosphatase 59 U/L (34-104) 10/12/17 21:45 Total Protein 7.4 g/dL (6.4-8.9) 10/12/17 21:45 Albumin 4.7 g/dL (3.2-5.2) 10/12/17 21:45 Globulin 2.7 g/dL (2-4) 10/12/17 21:45 Albumin/Globulin Ratio 1.7 (1-3) 10/12/17 21:45 Urine Color Straw 10/12/17 22:50 Urine Appearance Clear 10/12/17 22:50 Urine pH 7.0 (5-9) 10/12/17 22:50 Ur Specific [place] 1.009 (1.010-1.030) L 10/12/17 22:50 Urine Protein Negative (Negative) 10/12/17 22:50 Urine Ketones Trace (Negative) H 10/12/17 22:50 Urine Blood 1+ (Negative) H 10/12/17 22:50 Urine Nitrate Negative (Negative) 10/12/17 22:50 Urine Bilirubin Negative (Negative) 10/12/17 22:50 Urine Urobilinogen Negative (Negative) 10/12/17 22:50 Ur Leukocyte Esterase Negative (Negative) 10/12/17 22:50 Urine WBC (Auto) Absent (Absent) 10/12/17 22:50 Urine RBC (Auto) 3+(>10/hpf) (Absent) H 10/12/17 22:50 Ur Squamous Epith Cells Present (Absent) H 10/12/17 22:50 Urine Bacteria Absent (Absent) 10/12/17 22:50 Urine Glucose Negative (Negative) 10/12/17 22:50 Urine Ascorbic Acid * (Negative) H 10/12/17 22:50 Blood Type AB Positive 10/12/17 21:45 Antibody Screen Negative 10/12/17 21:45 Assessment: s/p ORIF left hip intertrochanteric fx POD #2 Plan: OOB, PT/OT, WBAT Pain control Lovenox DVT prophylaxis Dressing change 10/16/17 Agree with PRMU placement when bed available
[2017-10-15] MEDS: Enoxaparin(*) 40 MG/0.4 ML SYR SUBCUT SCH (12:50)
--- NOTE | 2017-10-15 15:13 | OP ---
DATE OF OPERATION: 10/13/17 - ROOM #337 DATE OF : 32 SURGEON: Fritz Ayers MD DOOR FRAME ASSEMBLER MACHINE: GARIMA Hardy. A physician reference assistant was required for the length of the procedure for positioning, retraction and assistance with closure. ANESTHESIOLOGIST: Justus Patton MD ANESTHESIA: Spinal anesthesia. Local anesthesia, Marcaine 0.25% x 15cc. PRE-OP DIAGNOSIS: Left hip proximal femur fracture, intertrochanteric, with subtrochanteric extension. POST-OP DIAGNOSIS: Left hip proximal femur fracture, intertrochanteric, with subtrochanteric extension. OPERATIVE PROCEDURE: Open reduction internal fixation of left hip proximal femur fracture, intertrochanteric with subtrochanteric extension with intramedullary nail, long. ANTIBIOTICS: Clindamycin 900 mg IV. IV FLUIDS: 1100 cc crystalloid. ESTIMATED BLOOD LOSS: Less than 200 cc. URINE OUTPUT: 725 cc. COMPLICATIONS: None. SPECIMEN: None. IMPLANTS: [place] left hip gamma nail, long. Nail of dimensions 11 mm x 360 mm x 125 degrees. Lag screw 10.5 mm x 100 mm. Locking screw 5 mm x 37.5 mm. INDICATIONS FOR PROCEDURE: The patient is an 87-year-old woman, who lives alone in an apartment in [place], [place], and who ambulates at baseline without assistive device, but who has a robust social life leaving her apartment, who sustained a fall with a left hip fracture on , 1 day prior to operative procedure. The patient was in an elevator at that time of her fall. She was leaning against 1 of 2 elevator doors, which opened unexpectedly, causing the patient to fall on to her left hip. The patient presented [place] [facility], with her son-in-law. X-rays in the emergency department made the diagnosis of a left proximal femur intertrochanteric fracture with subtrochanteric extension. An orthopedic surgery consult was called. I was in the hospital in the emergency department at that time and saw the patient there. I also spoke with the hospitalist service. Diagnosis was confirmed by me. The patient was admitted to the hospitalist service. I discussed the injury with the patient and her son-in- law. The patient was made nothing to eat or drink after midnight. The patient was medically optimized by the hospitalist service and cleared for surgery by the hospitalist service and Anesthesia. I discussed the benefits, risks and potential complications of the surgery with the patient. I discussed bleeding, infection, nerve and blood vessel injuries, blood clots, hip pain, stiffness, osteoarthritis, and hardware failure as potential complications. The patient was seen by her primary care physician, Reinaldo Cunningham, who deemed the patient medically optimized for surgery as well. DESCRIPTION OF PROCEDURE: Preoperatively, written consent was obtained from the patient in preoperative holding. Operative extremity was marked in preoperative holding. The patient was taken to the operating room. Spinal anesthetic was applied by Anesthesia. The patient was moved to the fracture table. The patient was sedated appropriately. The fracture table was assembled appropriately. A C- arm was brought in and confirmed adequacy of x- rays. After a mini time-out had been performed, slight traction was placed on the left lower extremity. Excellent reduction was confirmed in all planes by C- arm imaging. The left hip was prepped with ChloraPrep. A draping was performed. Surgical time- out was performed. I made a stab incision in the skin 8 cm proximal to the proximal tip of the greater trochanter as visualized with C-arm imaging. The stab was in the plane of the femur. I entered a pin through the stab incision to the greater trochanter. The pin was noted to be reasonably well centered in both the AP and lateral planes. At this point, I extended my skin incision distally and excised the hip abductor fascia in line with my percutaneous pin. I next adjusted the pin position slightly to improve its trajectory and placement in the sagittal plane. Satisfied with my pin position, I placed tissue protector and entry reamer and reamed the greater trochanter. I removed the instruments. I next placed ball-tip guidewire down the femur. I placed it to just proximal to the proximal pole of the patella level. I measured the length of femur along that distance of the ball-tip guidewire. It was 370 mm, so I decided on a 360 mm intramedullary nail. It should be stated the bone was still well reduced. I placed a long gamma nail. With the nail intramedullary at the appropriate level, I next placed a pin, overdrilled it and placed a screw in the femoral head. Excellent screw placement. I compressed the fracture site using the jig. According to C-arm images, I obtained improved reduction at the fracture site with compression. I next changed the jig, attached to the intramedullary nail for distal screw placement. I again created a skin incision, dissected down to bone, drilled the bone and placed a locking screw distally, bicortically. Prior to placement of the locking screw, I had placed my set screw through the intramedullary nail most proximally. I confirmed it being appropriately placed by imaging. Jig was removed. Irrigation of all incision sites copiously. Closure of the hip abductor fascia in the proximal incision and of the iliotibial band in the middle incision were performed with [id number] stitches using Vicryl 0 suture. Irrigation. Closure of the subcutaneous tissue and all three skin incisions was performed with buried simple stitches using Vicryl 2-0 suture. Closure of the skin with carin. Xeroform, 4x4's, ABD's, foam tape. The patient was lightened of sedation and transferred to the PACU. DISPOSITION: The patient was readmitted to the hospitalist service for postoperative management. The patient was placed on Lovenox 40 mg subcutaneous daily for DVT prophylaxis. Pain would be controlled appropriately. I wrote for immediate physical therapy but restricted the patient's weightbearing to partial weightbearing at first given the subtrochanteric extension at this fracture site. Ancef 1 g q.8 hours x 24 hours postoperatively. The patient will see me approximately 14 days postoperatively in the office for removal of the carin and new radiographs and discussion of weightbearing progression. [id number]/CPS #: [id number] DAYANARA
[2017-10-15] MEDS: Acetaminophen TAB* 325 MG PO PRN (21:17)
[2017-10-16] MEDS: Acetaminophen TAB* 325 MG PO PRN ×2 (04:21→18:27)
[2017-10-16] MEDS: ALENDRONATE 70 MG PO SCH ×2 (06:24→07:40)
[2017-10-16] MEDS ORDERED: NS 0.9% 500 ML* 500 ML IV ONE (09:06)
--- NOTE | 2017-10-16 09:12 | PN ---
Subjective - Subjective Reason for Note: Progress Note History: As I entered she was light headed, nauseated and slumped forward on a commode with 2 helping her. She was markedly hypotensive (57 mmHg systolic). This occurred during PT yesterday. She has been concerned about her low BP. Active Problems: Active Problems Fall (Acute) History of open reduction and internal fixation (ORIF) procedure (Acute) Z98.890 Intertrochanteric fracture of left hip (Acute) S72.142A Allergic asthma (Chronic) J45.909 Essential hypertension (Chronic) I10 Hypercholesterolemia (Chronic) E78.00 Impaired fasting glucose (Chronic) R73.01 Impairment of balance (Chronic) R26.89 Mitral valve prolapse (Chronic) I34.1 Osteopenia (Chronic) M85.80 Vitamin B12 deficiency (Chronic) E53.8 Vitamin D deficiency (Chronic) E55.9 Current Medications: Current Medications Acetaminophen (Tylenol Tab*) 650 mg PO Q4H PRN PRN Reason: FEVER/PAIN Last Admin: 10/16/17 04:21 Dose: 650 mg Alendronate Sodium (Fosamax (Nf)) 70 mg PO Q7D NAVI PRN Reason: Protocol Last Admin: 10/16/17 07:40 Dose: Not Given Codeine Sulfate (Codeine Tab*) 30 mg PO Q4H PRN PRN Reason: PAIN Last Admin: 10/15/17 08:10 Dose: 30 mg Enoxaparin Sodium (Lovenox(*)) 40 mg SUBCUT Q24H [facility] Last Admin: 10/15/17 12:50 Dose: 40 mg Lactated Ringer's (Lactated Ringers 1000 Ml Bag*) 1,000 mls @ 75 mls/hr IV PER RATE [facility] Morphine Sulfate (Morphine Inj (Syringe)*) 2 mg IV Q4H PRN PRN Reason: PAIN - MILD Ondansetron HCl (Zofran Inj*) 4 mg IV Q6H PRN PRN Reason: NAUSEA Home Medications: Home Medications Medication Instructions Recorded Confirmed Type NK [No Home Medications Reported] 10/12/17 10/12/17 History Allergies: Allergies Allergy/AdvReac Type Severity Reaction Status Date / Time Cephalexin [From Keflex] Allergy Unknown Verified 10/12/17 21:38 Reaction Details Objective - Vital Signs Vital Signs: Vital Signs 1210/15/17 10/15/17 10:00 10:38 11:16 Temperature 98.8 F Pulse Rate 61 65 Respiratory 16 17 Rate Blood Pressure 114/46 115/43 (mmHg) O2 Sat by Pulse 93 95 Oximetry 10/15/17 10/15/17 10/15/17 15:58 19:46 21:00 Temperature 99.2 F 99.4 F Pulse Rate 75 77 Respiratory 16 16 16 Rate Blood Pressure 136/60 102/41 (mmHg) O2 Sat by Pulse 98 96 Oximetry 10/15/17 10/16/17 23:38 04:12 Temperature 98.9 F 98.9 F Pulse Rate 71 76 Respiratory 18 16 Rate Blood Pressure 119/45 150/63 (mmHg) O2 Sat by Pulse 96 95 Oximetry - Intake and Output Intake and Output: Intake & Output 10/13/17 10/14/17 10/15/17 10/16/17 11:59 11:59 11:59 11:59 Intake Total 2540 1435 200 Output Total 1525 2125 1750 Balance 1015 690 -1550 Intake: IV Fluids 1940 LR 1378 IVPB 470 LR 470 Oral 600 965 200 Output: Urine 1925 1750 Wells 1225 200 Estimated Blood Loss 300 Other: # Bowel Movements 0 ADLs: Meal Record Start: 10/12/17 22: 42 Freq: Status: Active Protocol: Document 10/14/17 10:47 [id number] (Rec: 10/14/17 10:47 [id number] SSU-C05) Document 10/14/17 13:40 [id number] (Rec: 10/14/17 13:41 [id number] SSU-C01) Document 10/15/17 09:40 [id number] (Rec: 10/15/17 09:40 [id number] SSU-C04) Document 10/15/17 13:05 [id number] (Rec: 10/15/17 13:05 [id number] SSU-C19) Intake and Output Start: 10/12/17 22: 42 Freq: DAILY@0600,1400,2200 Status: Active Protocol: Document 10/13/17 05:25 [id number] (Rec: 10/13/17 05:26 [id number] SSU-C09) Document 10/13/17 13:30 [id number] (Rec: 10/13/17 13:30 [id number] SSU-C01) Document 10/13/17 22:00 [id number] (Rec: 10/13/17 22:02 [id number] SSU-C05) Document 10/14/17 03:20 [id number] (Rec: 10/14/17 04:18 [id number] SSU-C11) Document 10/14/17 05:45 [id number] (Rec: 10/14/17 05:45 [id number] SSU-M06) Document 10/14/17 12:07 [id number] (Rec: 10/14/17 12:08 [id number] SSU-C02) Document 10/14/17 14:00 [id number] (Rec: 10/14/17 14:40 [id number] SSU-C01) Document 10/14/17 18:53 [id number] (Rec: 10/14/17 18:54 [id number] SSU-C11) Document 10/14/17 22:00 [id number] (Rec: 10/14/17 22:12 [id number] SSU-C11) Document 10/15/17 01:25 [id number] (Rec: 10/15/17 01:25 [id number] SSU-C09) Document 10/15/17 04:02 [id number] (Rec: 10/15/17 04:02 UVT0712 SSU-C10) Document 10/15/17 05:10 [id number] (Rec: 10/15/17 05:10 [id number] SSU-C09) Document 10/15/17 13:13 [id number] (Rec: 10/15/17 13:13 [id number] SSU-C12) Document 10/15/17 16:19 [id number] (Rec: 10/15/17 16:19 [id number] SSU-C05) Document 10/15/17 19:00 [id number] (Rec: 10/15/17 23:20 [id number] SSU-C12) Document 10/15/17 21:14 [id number] (Rec: 10/15/17 21:15 [id number] SSU-C19) Document 10/15/17 22:00 [id number] (Rec: 10/15/17 22:08 [id number] SSU-C19) Document 10/16/17 05:43 [id number] (Rec: 10/16/17 05:43 [id number] U-C11) - Physical Exam General: No Cyanosis, Yes Anemia, No Jaundice, No Clubbing Lungs and Chest: Yes: Chest Expansion Full, Chest Expansion Symetrica, Percussion Note Resonant, Vessicular Breath Sounds. No: Wheezes Heart Rate and Rhythm: Regular Assessment - Problem List Assessment: Patient Problems Fall (Acute) History of open reduction and internal fixation (ORIF) procedure (Acute) Intertrochanteric fracture of left hip (Acute) Allergic asthma (Chronic) Essential hypertension (Chronic) Hypercholesterolemia (Chronic) Impaired fasting glucose (Chronic) Impairment of balance (Chronic) Mitral valve prolapse (Chronic) Osteopenia (Chronic) Vitamin B12 deficiency (Chronic) Vitamin D deficiency (Chronic) Plan: Hypotension: She has marked orthostatic hypotension. However, she was not particularly anemic yesterday and has had normal range BPs when in bed. Differential: orthostatic hypotension due to hypovolemia, codeine (she has a history of hypotensive response with hydrocodone), vasovagal response due to pain, adrenal insufficiency, occult cardiac ischemia. I will check an EKG, BMP, H and H, cortisol levels. Afterwards, I will give her a saline bolus as she is likely hypovolemic.
[2017-10-16 10:35] LABS: Hematocrit 37 % (35-47); Hemoglobin 12.3 g/dl (12.0-16.0); Mean Corpuscular HGB Conc 33 g/dl (31-36); Mean Corpuscular Hemoglobin 31 pg (27-31); Mean Corpuscular Volume 94 fL (80-97); Mean Platelet Volume 9 um3 (7.4-10.4); Red Blood Count 3.97 10^6/ul (4.0-5.4); Red Cell Distribution Width 13 % (10.5-15); White Blood Count 8.8 10^3/ul (3.5-10.8)
[2017-10-16 10:51] LABS: BUN/Creatinine Ratio 19.3 (8-20); Calcium 8.6 mg/dL (8.6-10.3); EGFR African American 83.8 (>60); EGFR Non-African American 65.2 (>60); Potassium 4.2 mmol/L (3.5-5.0)
[2017-10-16] MEDS: Enoxaparin(*) 40 MG/0.4 ML SYR SUBCUT SCH (14:02)
--- NOTE | 2017-10-16 15:59 | PN ---
Progress Note - Progress Note Date of Service: 10/16/17 SOAP: Subjective: Pt resting comfortably in bed. No complaint of pain. States has been dizzy when getting out of bed. Denies F/C/N/T Objective: Dressing changed. Incisions C/D/I. Calves soft, Non tender. Sensation intact to light touch. 2+ DP pulses Vital Signs: Temp Pulse Resp BP Pulse Ox 98.6 F 70 16 139/63 98 10/16/17 11:21 10/16/17 11:21 10/16/17 11:21 10/16/17 11:21 10/16/17 11:21 Laboratory Last Values WBC 8.8 10^3/ul (3.5-10.8) 10/16/17 10:21 RBC 3.97 10^6/ul (4.0-5.4) L 10/16/17 10:21 Hgb 12.3 g/dl (12.0-16.0) 10/16/17 10:21 Hct 37 % (35-47) 10/16/17 10:21 MCV 94 fL (80-97) 10/16/17 10:21 MCH 31 pg (27-31) 10/16/17 10:21 MCHC 33 g/dl (31-36) 10/16/17 10:21 RDW 13 % (10.5-15) 10/16/17 10:21 Plt Count 143 10^3/ul (150-450) L 10/16/17 10:21 MPV 9 um3 (7.4-10.4) 10/16/17 10:21 Neut % (Auto) 73.8 % (38-83) 10/16/17 10:21 Lymph % (Auto) 15.8 % (25-47) L 10/16/17 10:21 [place] % (Auto) 8.6 % (1-9) 10/16/17 10:21 Eos % (Auto) 1.5 % (0-6) 10/16/17 10:21 Baso % (Auto) 0.3 % (0-2) 10/16/17 10:21 Absolute Neuts (auto) 6.5 10^3/ul (1.5-7.7) 10/16/17 10:21 Absolute Lymphs (auto) 1.4 10^3/ul (1.0-4.8) 10/16/17 10:21 Absolute Monos (auto) 0.8 10^3/ul (0-0.8) 10/16/17 10:21 Absolute Eos (auto) 0.1 10^3/ul (0-0.6) 10/16/17 10:21 Absolute Basos (auto) 0 10^3/ul (0-0.2) 10/16/17 10:21 Absolute Nucleated RBC 0 10^3/ul 10/16/17 10:21 Nucleated RBC % 0 10/16/17 10:21 INR (Anticoag Therapy) 0.95 (0.77-1.02) 10/13/17 05:11 APTT 27.9 seconds (26.0-36.3) 10/12/17 21:45 Sodium 138 mmol/L (133-145) 10/16/17 10:22 Potassium 4.2 mmol/L (3.5-5.0) 10/16/17 10:22 Chloride 104 mmol/L (101-111) 10/16/17 10:22 Carbon Dioxide 29 mmol/L (22-32) 10/16/17 10:22 Anion Gap 5 mmol/L (2-11) 10/16/17 10:22 BUN 16 mg/dL (6-24) 10/16/17 10:22 Creatinine 0.83 mg/dL (0.51-0.95) 10/16/17 10:22 Est GFR ( Amer) 83.8 (>60) 10/16/17 10:22 Est GFR (Non-Af Amer) 65.2 (>60) 10/16/17 10:22 BUN/Creatinine Ratio 19.3 (8-20) 10/16/17 10:22 Glucose 176 mg/dL (70-100) H 10/16/17 10:22 Calcium 8.6 mg/dL (8.6-10.3) 10/16/17 10:22 Total Bilirubin 0.50 mg/dL (0.2-1.0) 10/12/17 21:45 AST 26 U/L (13-39) 10/12/17 21:45 ALT 19 U/L (7-52) 10/12/17 21:45 Alkaline Phosphatase 59 U/L (34-104) 10/12/17 21:45 Total Protein 7.4 g/dL (6.4-8.9) 10/12/17 21:45 Albumin 4.7 g/dL (3.2-5.2) 10/12/17 21:45 Globulin 2.7 g/dL (2-4) 10/12/17 21:45 Albumin/Globulin Ratio 1.7 (1-3) 10/12/17 21:45 Urine Color Straw 10/12/17 22:50 Urine Appearance Clear 10/12/17 22:50 Urine pH 7.0 (5-9) 10/12/17 22:50 Ur Specific [place] 1.009 (1.010-1.030) L 10/12/17 22:50 Urine Protein Negative (Negative) 10/12/17 22:50 Urine Ketones Trace (Negative) H 10/12/17 22:50 Urine Blood 1+ (Negative) H 10/12/17 22:50 Urine Nitrate Negative (Negative) 10/12/17 22:50 Urine Bilirubin Negative (Negative) 10/12/17 22:50 Urine Urobilinogen Negative (Negative) 10/12/17 22:50 Ur Leukocyte Esterase Negative (Negative) 10/12/17 22:50 Urine WBC (Auto) Absent (Absent) 10/12/17 22:50 Urine RBC (Auto) 3+(>10/hpf) (Absent) H 10/12/17 22:50 Ur Squamous Epith Cells Present (Absent) H 10/12/17 22:50 Urine Bacteria Absent (Absent) 10/12/17 22:50 Urine Glucose Negative (Negative) 10/12/17 22:50 Urine Ascorbic Acid * (Negative) H 10/12/17 22:50 Blood Type AB Positive 10/12/17 21:45 Antibody Screen Negative 10/12/17 21:45 Assessment: s/p ORIF left hip fx POD #3 Plan: OOB PT/OT Pain control Lovenox for DVT prophylaxis
[2017-10-17] MEDS: Acetaminophen TAB* 325 MG PO PRN (02:51)
--- NOTE | 2017-10-17 09:57 | PN ---
Subjective - Subjective Reason for Note: Progress Note History: She continues to have light headedness on standing - but much improved over yesterday. I gave her 500 mls of NS IV yesterday without adverse effect. Otherwise, her pain control is good - she wants to stop all medication. Active Problems: Active Problems Fall (Acute) History of open reduction and internal fixation (ORIF) procedure (Acute) Z98.890 Intertrochanteric fracture of left hip (Acute) S72.142A Allergic asthma (Chronic) J45.909 Essential hypertension (Chronic) I10 Hypercholesterolemia (Chronic) E78.00 Impaired fasting glucose (Chronic) R73.01 Impairment of balance (Chronic) R26.89 Mitral valve prolapse (Chronic) I34.1 Osteopenia (Chronic) M85.80 Vitamin B12 deficiency (Chronic) E53.8 Vitamin D deficiency (Chronic) E55.9 Current Medications: Current Medications Acetaminophen (Tylenol Tab*) 650 mg PO Q4H PRN PRN Reason: FEVER/PAIN Last Admin: 10/17/17 02:51 Dose: 325 mg Alendronate Sodium (Fosamax (Nf)) 70 mg PO Q7D NAVI PRN Reason: Protocol Last Admin: 10/16/17 07:40 Dose: Not Given Enoxaparin Sodium (Lovenox(*)) 40 mg SUBCUT Q24H [facility] Last Admin: 10/16/17 14:02 Dose: 40 mg Ondansetron HCl (Zofran Inj*) 4 mg IV Q6H PRN PRN Reason: NAUSEA Home Medications: Home Medications Medication Instructions Recorded Confirmed Type NK [No Home Medications Reported] 10/12/17 10/12/17 History Allergies: Allergies Allergy/AdvReac Type Severity Reaction Status Date / Time Cephalexin [From Keflex] Allergy Unknown Verified 10/12/17 21:38 Reaction Details Objective - Vital Signs Vital Signs: Vital Signs 10/16/17 10/16/17 10/16/17 11:21 15:31 19:15 Temperature 98.6 F 98.1 F Pulse Rate 70 69 Respiratory 16 16 16 Rate Blood Pressure 139/63 107/46 (mmHg) O2 Sat by Pulse 98 96 Oximetry 10/16/17 10/16/17 10/16/17 19:24 21:00 21:02 Temperature 98.2 F Pulse Rate 79 74 79 Respiratory 16 Rate Blood Pressure 125/51 143/49 154/69 (mmHg) O2 Sat by Pulse 97 96 96 Oximetry 10/16/17 10/16/17 10/17/17 21:04 23:50 03:30 Temperature 98.8 F 97.8 F Pulse Rate 90 81 71 Respiratory 16 16 Rate Blood Pressure 154/75 122/43 134/52 (mmHg) O2 Sat by Pulse 96 97 95 Oximetry 10/17/17 10/17/17 07:15 07:33 Temperature 98.6 F Pulse Rate 71 Respiratory 16 17 Rate Blood Pressure 139/47 (mmHg) O2 Sat by Pulse 96 Oximetry - Intake and Output Intake and Output: Intake & Output 10/14/17 10/15/17 10/16/17 10/17/17 11:59 11:59 11:59 11:59 Intake Total 2540 5865 501 0407 Output Total 1525 2125 1900 900 Balance 1015 -690 -1500 384 Intake: IV Fluids 1940 499 LR 1378 NS (0.9%) 499 IVPB 470 LR 470 Oral 600 965 400 785 Output: Urine 192 1900 900 Wells 1225 200 Estimated Blood Loss 300 Other: # Bowel Movements 0 1 Estimated Stool Amount Medium Medium ADLs: Meal Record Start: 10/12/17 22: 42 Freq: Status: Active Protocol: Document 10/14/17 10:47 [id number] (Rec: 10/14/17 10:47 [id number] SSU-C05) Document 10/14/17 13:40 [id number] (Rec: 10/14/17 13:41 SOX2502 SSU-C01) Document 10/15/17 09:40 [id number] (Rec: 10/15/17 09:40 UIG0355 SSU-C04) Document 10/15/17 13:05 [id number] (Rec: 10/15/17 13:05 [id number] SSU-C19) Document 10/16/17 10:00 [id number] (Rec: 10/16/17 13:20 [id number] SSU-C05) Document 10/16/17 13:20 DMJ0473 (Rec: 10/16/17 13:22 [id number] SSU-C05) Document 10/17/17 09:51 [id number] (Rec: 10/17/17 09:51 [id number] [facility]) Intake and Output Start: 10/12/17 22: 42 Freq: DAILY@0600,1400,2200 Status: Active Protocol: Document 10/13/17 05:25 [id number] (Rec: 10/13/17 05:26 [id number] SSU-C09) Document 10/13/17 13:30 [id number] (Rec: 10/13/17 13:30 CQB6529 SSU-C01) Document 10/13/17 22:00 OMF6037 (Rec: 10/13/17 22:02 QUR3637 SSU-C05) Document 10/14/17 03:20 [id number] (Rec: 10/14/17 04:18 GYD0201 SSU-C11) Document 10/14/17 05:45 GSK5446 (Rec: 10/14/17 05:45 VGJ9444 SSU-M06) Document 10/14/17 12:07 VMA7006 (Rec: 10/14/17 12:08 BKF9874 SSU-C02) Document 10/14/17 14:00 DMW6619 (Rec: 10/14/17 14:40 [id number] SSU-C01) Document 10/14/17 18:53 QNV5714 (Rec: 10/14/17 18:54 YOC4354 SSU-C11) Document 10/14/17 22:00 SWC1094 (Rec: 10/14/17 22:12 RFO4606 SSU-C11) Document 10/15/17 01:25 YPK4470 (Rec: 10/15/17 01:25 YLA8780 SSU-C09) Document 10/15/17 04:02 KYZ5164 (Rec: 10/15/17 04:02 BHQ3144 SSU-C10) Document 10/15/17 05:10 RCS4980 (Rec: 10/15/17 05:10 JZW2589 SSU-C09) Document 10/15/17 13:13 [id number] (Rec: 10/15/17 13:13 [id number] SSU-C12) Document 10/15/17 16:19 BUT1211 (Rec: 10/15/17 16:19 FMI3856 SSU-C05) Document 10/15/17 19:00 FZL3072 (Rec: 10/15/17 23:20 GEQ6425 SSU-C12) Document 10/15/17 21:14 SSQ4892 (Rec: 10/15/17 21:15 WVQ4269 SSU-C19) Document 10/15/17 22:00 THI9087 (Rec: 10/15/17 22:08 UVP5206 SSU-C19) Document 10/16/17 05:43 UZK6953 (Rec: 10/16/17 05:43 JOB3387 SSU-C11) Document 10/16/17 14:24 PEV0066 (Rec: 10/16/17 14:25 ZHI9722 SSU-C05) Document 10/16/17 21:14 YMZ8703 (Rec: 10/16/17 21:15 DBJ7078 SSU-C03) Document 10/16/17 22:00 QEM1403 (Rec: 10/16/17 22:24 FYS3150 SSU-C03) Document 10/17/17 02:48 QAU9062 (Rec: 10/17/17 02:48 PZX3551 SSU-M16) Document 10/17/17 06:00 ZWV1330 (Rec: 10/17/17 06:39 OGR8585 SSU-C08) Results - Results Lab Results: Laboratory Results - last 24 hr 10/16/17 10/16/17 10:21 10:22 WBC 8.8 RBC 3.97 L Hgb 12.3 Hct 37 MCV 94 MCH 31 MCHC 33 RDW 13 Plt Count 143 L MPV 9 Neut % (Auto) 73.8 Lymph % (Auto) 15.8 L [place] % (Auto) 8.6 Eos % (Auto) 1.5 Baso % (Auto) 0.3 Absolute Neuts (auto) 6.5 Absolute Lymphs (auto) 1.4 Absolute Monos (auto) 0.8 Absolute Eos (auto) 0.1 Absolute Basos (auto) 0 Absolute Nucleated RBC 0 Nucleated RBC % 0 Sodium 138 Potassium 4.2 Chloride 104 Carbon Dioxide 29 Anion Gap 5 BUN 16 Creatinine 0.83 Est GFR ( Amer) 83.8 Est GFR (Non-Af Amer) 65.2 BUN/Creatinine Ratio 19.3 Glucose 176 H Calcium 8.6 Assessment - Problem List Assessment: Patient Problems Fall (Acute) History of open reduction and internal fixation (ORIF) procedure (Acute) Intertrochanteric fracture of left hip (Acute) Allergic asthma (Chronic) Essential hypertension (Chronic) Hypercholesterolemia (Chronic) Impaired fasting glucose (Chronic) Impairment of balance (Chronic) Mitral valve prolapse (Chronic) Osteopenia (Chronic) Vitamin B12 deficiency (Chronic) Vitamin D deficiency (Chronic) Plan: She has not yet managed to walk any distance owing to her light-headedness/ orthostatic hypotension. Otherwise, she seems fine. I reviewed her labs/EKG - there are no signs here of any major pathological cause of her orthostatic hypotension. It likely is due to opioid use. I will check orthostatic BPs. Otherwise, I anticipate her resuming her PT.
[2017-10-17] MEDS: Enoxaparin(*) 40 MG/0.4 ML SYR SUBCUT SCH (12:24)
--- NOTE | 2017-10-18 09:01 | PN ---
Subjective - Subjective Reason for Note: Discharge Note History: She is feeling well. She has more frequent bowel movements than usual, but no abdominal pain and doesn't describe it as diarrhea. Her pain control is good. No further orthostatic symptoms Active Problems: Active Problems Fall (Acute) History of open reduction and internal fixation (ORIF) procedure (Acute) Z98.890 Intertrochanteric fracture of left hip (Acute) S72.142A Allergic asthma (Chronic) J45.909 Essential hypertension (Chronic) I10 Hypercholesterolemia (Chronic) E78.00 Impaired fasting glucose (Chronic) R73.01 Impairment of balance (Chronic) R26.89 Mitral valve prolapse (Chronic) I34.1 Osteopenia (Chronic) M85.80 Vitamin B12 deficiency (Chronic) E53.8 Vitamin D deficiency (Chronic) E55.9 Current Medications: Current Medications Acetaminophen (Tylenol Tab*) 650 mg PO Q4H PRN PRN Reason: FEVER/PAIN Last Admin: 10/17/17 02:51 Dose: 325 mg Alendronate Sodium (Fosamax (Nf)) 70 mg PO Q7D ANVI PRN Reason: Protocol Last Admin: 10/16/17 07:40 Dose: Not Given Enoxaparin Sodium (Lovenox(*)) 40 mg SUBCUT Q24H NAVI Last Admin: 10/17/17 12:24 Dose: 40 mg Ondansetron HCl (Zofran Inj*) 4 mg IV Q6H PRN PRN Reason: NAUSEA Home Medications: Home Medications Medication Instructions Recorded Confirmed Type NK [No Home Medications Reported] 10/12/17 10/12/17 History Allergies: Allergies Allergy/AdvReac Type Severity Reaction Status Date / Time Cephalexin [From Keflex] Allergy Unknown Verified 10/12/17 21:38 Reaction Details Objective - Vital Signs Vital Signs: Vital Signs 10/17/17 10/17/17 10/17/17 11:10 15:32 19:02 Temperature 98.4 F 97.7 F Pulse Rate 72 70 Respiratory 17 18 16 Rate Blood Pressure 108/53 115/54 (mmHg) O2 Sat by Pulse 98 100 Oximetry 10/17/17 10/17/17 10/18/17 19:50 23:39 03:20 Temperature 97.8 F 98.6 F 98.3 F Pulse Rate 76 86 71 Respiratory 16 16 18 Rate Blood Pressure 123/54 149/66 123/56 (mmHg) O2 Sat by Pulse 96 98 99 Oximetry - Intake and Output Intake and Output: Intake & Output 10/15/17 10/16/17 10/17/17 10/18/17 11:59 11:59 11:59 11:59 Intake Total 6373 969 3174 2110 Output Total 2125 1114 254 5571 Balance -690 -1500 384 410 Intake: IV Fluids 499 NS (0.9%) 499 IVPB 470 LR 470 Oral 965 822 304 0982 Output: Urine [id number] 808 7710 Wells 200 Other: # Bowel Movements 0 1 1 Estimated Stool Amount Medium Medium Small ADLs: Meal Record Start: 10/12/17 22: 42 Freq: Status: Active Protocol: Document 10/14/17 10:47 [id number] (Rec: 10/14/17 10:47 [id number] SSU-C05) Document 10/14/17 13:40 TNR2217 (Rec: 10/14/17 13:41 ARS1464 SSU-C01) Document 10/15/17 09:40 [id number] (Rec: 10/15/17 09:40 ESX7297 SSU-C04) Document 10/15/17 13:05 FOX1282 (Rec: 10/15/17 13:05 DPY1729 SSU-C19) Document 10/16/17 10:00 FUS4185 (Rec: 10/16/17 13:20 MUO2102 SSU-C05) Document 10/16/17 13:20 BNA6194 (Rec: 10/16/17 13:22 CKS0538 SSU-C05) Document 10/17/17 09:51 JTO0745 (Rec: 10/17/17 09:51 GSR0447 [facility]) Document 10/17/17 13:16 LTT1745 (Rec: 10/17/17 13:16 RWT2889 SSU-C12) Document 10/17/17 18:48 SKE2367 (Rec: 10/17/17 18:48 SFN8882 SSU-C11) Intake and Output Start: 10/12/17 22: 42 Freq: DAILY@0600,1400,2200 Status: Active Protocol: Document 10/13/17 05:25 [id number] (Rec: 10/13/17 05:26 PCI7366 SSU-C09) Document 10/13/17 13:30 WLO0664 (Rec: 10/13/17 13:30 LHY3044 SSU-C01) Document 10/13/17 22:00 WMQ0382 (Rec: 10/13/17 22:02 ZLZ1468 SSU-C05) Document 10/14/17 03:20 TLH2785 (Rec: 10/14/17 04:18 YUK2901 SSU-C11) Document 10/14/17 05:45 UEX5029 (Rec: 10/14/17 05:45 WLV9525 SSU-M06) Document 10/14/17 12:07 PHK5804 (Rec: 10/14/17 12:08 VJN8297 SSU-C02) Document 10/14/17 14:00 UWH9028 (Rec: 10/14/17 14:40 JKB5564 SSU-C01) Document 10/14/17 18:53 NLP7233 (Rec: 10/14/17 18:54 PLM8858 SSU-C11) Document 10/14/17 22:00 QXT0672 (Rec: 10/14/17 22:12 OVU8956 SSU-C11) Document 10/15/17 01:25 VID8015 (Rec: 10/15/17 01:25 TSK1984 SSU-C09) Document 10/15/17 04:02 FAM8064 (Rec: 10/15/17 04:02 TFD2549 SSU-C10) Document 10/15/17 05:10 AUF7617 (Rec: 10/15/17 05:10 AQH5004 SSU-C09) Document 10/15/17 13:13 NCT5822 (Rec: 10/15/17 13:13 TIS9375 SSU-C12) Document 10/15/17 16:19 LVP9686 (Rec: 10/15/17 16:19 LWV2466 SSU-C05) Document 10/15/17 19:00 PHN1001 (Rec: 10/15/17 23:20 XMP3436 SSU-C12) Document 10/15/17 21:14 TQO1789 (Rec: 10/15/17 21:15 VOF9194 SSU-C19) Document 10/15/17 22:00 KRN8739 (Rec: 10/15/17 22:08 MCT5139 SSU-C19) Document 10/16/17 05:43 VYI8187 (Rec: 10/16/17 05:43 MTC9627 SSU-C11) Document 10/16/17 14:24 NQH5402 (Rec: 10/16/17 14:25 FPD4576 SSU-C05) Document 10/16/17 21:14 IUL5951 (Rec: 10/16/17 21:15 GXB0112 SSU-C03) Document 10/16/17 22:00 QJZ2192 (Rec: 10/16/17 22:24 AAU0277 SSU-C03) Document 10/17/17 02:48 EZJ7430 (Rec: 10/17/17 02:48 TSF3110 SSU-M16) Document 10/17/17 06:00 WVG1874 (Rec: 10/17/17 06:39 LUC9560 SSU-C08) Document 10/17/17 13:48 VNN1634 (Rec: 10/17/17 13:48 HRR2194 [place] [address]) Document 10/17/17 17:26 ZIZ4245 (Rec: 10/17/17 17:27 JHH7202 SSU-C11) Document 10/17/17 20:50 LIQ3008 (Rec: 10/17/17 20:51 ZXO6104 SSU-C11) Document 10/17/17 22:00 JIC0057 (Rec: 10/17/17 22:07 XIL2026 SSU-C11) Document 10/17/17 23:45 ECL4335 (Rec: 10/17/17 23:59 GOO2145 SSU-C11) Document 10/18/17 05:26 IMJ8626 (Rec: 10/18/17 05:26 JBB0332 SSU-C05) Assessment - Problem List Assessment: Patient Problems Fall (Acute) History of open reduction and internal fixation (ORIF) procedure (Acute) Intertrochanteric fracture of left hip (Acute) Allergic asthma (Chronic) Essential hypertension (Chronic) Hypercholesterolemia (Chronic) Impaired fasting glucose (Chronic) Impairment of balance (Chronic) Mitral valve prolapse (Chronic) Osteopenia (Chronic) Vitamin B12 deficiency (Chronic) Vitamin D deficiency (Chronic) Plan: She has been accepted by [facility] for rehabilitation and will transfer today. She is doing well from the medical point of view.
[2017-10-18 10:37] VITALS: BP 146/65
== END 2017-10-18 10:55 | DRG 482 ==
LOC: ED 19:57 → SSU 21:15 → OBSVTOIN 10-13 15:00 → SSU 10-13 16:00
PROVIDERS: ADMIT Hospitalist; ATTEND Internal Medicine
PROC: 0QS706Z Reposition Left Upper Femur with Intramedullary Internal Fixation Device, Open Approach (ICD-10-PCS; principal; 2017-10-13 16:30)
DX: S72.142A Displaced intertrochanteric fracture of left femur, initial encounter for closed fracture (principal); I34.1 Nonrheumatic mitral (valve) prolapse; E53.8 Deficiency of other specified B group vitamins; E78.00 Pure hypercholesterolemia, unspecified; I10 Essential (primary) hypertension; W10.0XXA Fall (on)(from) escalator, initial encounter; J45.909 Unspecified asthma, uncomplicated; R73.01 Impaired fasting glucose; M85.80 Other specified disorders of bone density and structure, unspecified site; E55.9 Vitamin D deficiency, unspecified; I95.1 Orthostatic hypotension; M50.323 Other cervical disc degeneration at C6-C7 level; Y92.22 Religious institution as the place of occurrence of the external cause; Z88.1 Allergy status to other antibiotic agents; Z81.8 Family history of other mental and behavioral disorders; Z82.49 Family history of ischemic heart disease and other diseases of the circulatory system; Z90.722 Acquired absence of ovaries, bilateral
CPT/HCPCS: 36415; 71010; 76000; 80048; 80053; 81003; 81015; 85025; 85610; 85730; 86850; 86900; 86901; 87086; 93005; 94760; A9270-GY; C1713; C1776; G8987-GO-CL; G8988-GO-CI; J1100; J1644; J1650; J1885; J2250; J2405; J2704; J3010

== ENCOUNTER 2017-10-18 08:54 | Inpatient (IN) | payer MEDICARE ==
[2017-10-18] MEDS ORDERED: Acetaminophen TAB* 325 MG PO PRN (10:48)
[2017-10-18] MEDS ORDERED: Ondansetron ODT TAB* 4 MG PO PRN (11:22)
[2017-10-18] MEDS: Enoxaparin(*) 40 MG/0.4 ML SYR SUBCUT SCH (13:59)
--- NOTE | 2017-10-18 14:23 | HP ---
CC: Dr. Cunningham; Dr. Ayers * REHABILITATION ADMISSION NOTE: DATE OF ADMISSION: 10/18/17 PRIMARY CARE PROVIDER: Dr. Cunningham ORTHOPEDIC SURGEON: Dr. Ayers REASON FOR ADMISSION: Left hip fracture. HISTORY OF PRESENT ILLNESS: This is an 87-year-old woman who has been in very good health, but was admitted on 10/12/17 with a left hip fracture. She was in an elevator with other people. There were doors on either side, and she was leaning against the door that was opening, which she did not realize. She fell out of the elevator when the door opened and fractured her left hip. She was found to have a inter and subtrochanteric left femur fractures. She was seen by Dr. Ayers and after medical clearance, was taken to the OR on 10/13/17 for ORIF with long intramedullary nail. Postoperatively, she was put on Lovenox for DVT prophylaxis and given 50% weightbearing to the left lower extremity precautions. Her acute hospital stay has been complicated by orthostatic hypotension. On 10/16/17 her systolic pressures dropped to the 50s when she was up with therapy. She received IV fluids and did well yesterday. In addition, she has been sensitive to pain medications in the past including hydrocodone and she was on codeine initially. This was discontinued. Her pain is minimal and she is using Tylenol on an as needed basis, but has not even asked for that. Prior to admission she was independent with mobility and ADLs. She was walking 3-flights of stairs on a daily basis and doing Alin Chi. With physical therapy, she has required [id number]-[id number] assistance for transferring and ambulating to 5 feet. With occupational therapy she has required maximum amount of assistance for lower body dressing and moderate amounts for toileting. PAST MEDICAL HISTORY: Hypertension, syncope, mitral valve prolapse, status post oophorectomy, status post ovarian cyst removal, status post tonsillectomy, allergic asthma, hyperlipidemia, osteopenia, vitamin B12 deficiency, vitamin D deficiency and impaired fasting glucose. MEDICATIONS: Currently: 1. Tylenol p.r.n. 2. Fosamax 70 mg q. week started on 10/16/17. 3. Lovenox 40 mg subcutaneously daily. 4. Zofran p.r.n. ALLERGIES: KEFLEX and BAND-AID. She has been hypotensive before with hydrocodone and now codeine. SOCIAL HISTORY: She is and lives alone in an apartment in the [facility]. Her home is 1-level. There is an elevator within the mall for her to access her apartment. No smoking or alcohol. 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 Her step son-in-law is Dr. Forest Andrews, who is her healthy care proxy. FAMILY HISTORY: Mother had dementia, father had Parkinson's. REVIEW OF SYSTEMS: See history of present illness and past medical history. She has been urinating. Every time she urinates she has some soft stools come out as well. The remainder of the 13-system review was completed. No other significant findings. PHYSICAL EXAMINATION GENERAL: Well developed, well nourished, appearing stated age. VITAL SIGNS: Temperature is 98.4, pulse 67, respirations 16, oxygenation 98% on room air. Blood pressure 145/62. HEENT: Normocephalic, atraumatic. Oropharynx is clear. Moist mucous membranes. LUNGS: Clear to auscultation bilaterally. HEART: Regular, rate and rhythm. ABDOMEN: Active bowel sounds. Soft, nontender, and nondistended. EXTREMITIES: No clubbing, cyanosis or edema. NEUROLOGIC EXAM: Cranial nerves II through XII are intact. Upper and lower extremity motor 5/5 bilaterally with some pain limited testing of the left hip and knee. Sensation is intact. MUSCULOSKELETAL: She has functional range of motions of all her major joints with limited testing of the left hip and knee. SKIN: She has carin in 3 areas in her left leg that are clean, dry and intact. MENTAL STATUS EXAM: No acute distress. Alert and oriented x3. IMPRESSION: An 87-year-old woman with left hip fracture and postoperative course complicated by orthostatic hypotension, will be admitted to [facility] so that she can return to independent living. PLAN: 1. Left hip fracture. Continue with 50% weightbearing to left lower extremity. She will have x-rays 2 weeks postop, which will be 10/27/17 and have these followed up with Dr. Ayers for review as well as her consideration of staple removal. 2. Orthostatic hypotension. Encourage p.o. fluids, at least 2 L per day, have orthostatic vitals checked every morning. 3. DVT prophylaxis. Continue with Lovenox. She will be able to do self administration for discharge. 4. Osteoporosis. She was started on Fosamax 70 mg q. week during the acute stay and this will continue. 5. Impaired mobility. She will be seen by Physical Therapy for bed mobility, transfer training, and gait training using a rolling walker and maintaining her 50% weightbearing. 6. Impaired self-care. She will be seen by Occupational Therapy for ADL and IADL training and equipment evaluation. 7. Advance directive. She desires to be do not resuscitate. Her health care proxy is Dr. Forest Andrews, phone number is [phone]. 8. Estimated length of stay is 2 weeks then return to her home. [id number]/[facility] #: [id number] DAYANARA
[2017-10-19 07:46] LABS: ABS Basophils 0 10^3/ul (0-0.2); ABS Eosinophils 0.3 10^3/ul (0-0.6); ABS Lymphocytes 1.6 10^3/ul (1.0-4.8); ABS Monocytes 0.8 10^3/ul (0-0.8); ABS Nucleated RBC 0.01 10^3/ul; Eosinophil % 3.1 % (0-6); Hematocrit 35 % (35-47); Hemoglobin 12.2 g/dl (12.0-16.0); Lymphocyte % 18.7 % (25-47); Mean Corpuscular HGB Conc 34 g/dl (31-36); Mean Corpuscular Hemoglobin 32 pg (27-31); Mean Corpuscular Volume 92 fL (80-97); Mean Platelet Volume 9 um3 (7.4-10.4); Nucleated Red Blood Cells % 0.1; Platelet Count 203 10^3/ul (150-450); Red Blood Count 3.84 10^6/ul (4.0-5.4); Red Cell Distribution Width 13 % (10.5-15); White Blood Count 8.7 10^3/ul (3.5-10.8)
[2017-10-19 08:04] LABS: EGFR Non-African American 91.3 (>60)
[2017-10-19] MEDS: Enoxaparin(*) 40 MG/0.4 ML SYR SUBCUT SCH (12:04)
--- NOTE | 2017-10-19 18:26 | PN ---
Progress Note - Progress Note Date of Service: 10/19/17 Note: Christina visited. Therapy notes read and reviewed. Her vital signs do not show orthostasis. She believes some dietary modifications have improved her loose stools. Current Medications Acetaminophen (Tylenol Tab*) 650 mg PO Q6H PRN PRN Reason: FEVER > 101 Alendronate Sodium (Fosamax (Nf)) 70 mg PO Q7D NAVI PRN Reason: Protocol Enoxaparin Sodium (Lovenox(*)) 40 mg SUBCUT Q24H NAVI Last Admin: 10/19/17 12:04 Dose: 40 mg Ondansetron HCl (Zofran Odt Tab*) 4 mg PO Q6H PRN PRN Reason: NAUSEA Laboratory Results - last 24 hr 10/19/17 10/19/17 07:25 07:25 WBC 8.7 RBC 3.84 L Hgb 12.2 Hct 35 MCV 92 MCH 32 H MCHC 34 RDW 13 Plt Count 203 MPV 9 Neut % (Auto) 68.6 Lymph % (Auto) 18.7 L [place] % (Auto) 9.2 H Eos % (Auto) 3.1 Baso % (Auto) 0.4 Absolute Neuts (auto) 6.0 Absolute Lymphs (auto) 1.6 Absolute Monos (auto) 0.8 Absolute Eos (auto) 0.3 Absolute Basos (auto) 0 Absolute Nucleated RBC 0.01 Nucleated RBC % 0.1 Sodium 135 Potassium 3.8 Chloride 103 Carbon Dioxide 26 Anion Gap 6 BUN 12 Creatinine 0.62 Est GFR ( Amer) 117.4 Est GFR (Non-Af Amer) 91.3 BUN/Creatinine Ratio 19.4 Glucose 117 H Calcium 8.5 L Total Bilirubin 0.70 AST 20 ALT 18 Alkaline Phosphatase 42 Total Protein 5.7 L Albumin 3.3 Globulin 2.4 Albumin/Globulin Ratio 1.4 Vital Signs Temp Pulse Resp BP Pulse Ox 98.3 F 66 16 121/52 98 10/19/17 16:31 10/19/17 16:31 10/19/17 16:31 10/19/17 16:31 10/19/17 17:37 EXAM: LUNGS: Clear bilaterally HEART: reg rhythm ABDOMEN: Soft. +BS EXTREMITIES: Wound on LLE clean ASSESSMENT/PLAN: 1. Left hip fracture: 50% WB. PT/OT 2. Osteoporosis: Fosamax 3. DVT Prophylaxis: Lovenox 4. Advanced Directives: Has HCP. DNR 5. Orthostasis: Follow for now
[2017-10-20] MEDS: Hydrocortisone 1% CREAM* 30 GM TUBE TOPICAL SCH ×2 (09:09→19:49)
[2017-10-20] MEDS: Enoxaparin(*) 40 MG/0.4 ML SYR SUBCUT SCH (11:25)
--- NOTE | 2017-10-20 18:30 | PN ---
Progress Note - Progress Note Date of Service: 10/20/17 Note: Christina visited. She has no new complaints. Therapy notes read and reviewed. She does not seem orthostatic and will d/c orthostatics Current Medications Acetaminophen (Tylenol Tab*) 650 mg PO Q6H PRN PRN Reason: FEVER > 101 Alendronate Sodium (Fosamax (Nf)) 70 mg PO Q7D [facility] PRN Reason: Protocol Enoxaparin Sodium (Lovenox(*)) 40 mg SUBCUT Q24H [facility] Last Admin: 10/20/17 11:25 Dose: 40 mg Hydrocortisone (Hytone Cream 1%*) 1 applic TOPICAL BID [facility] Last Admin: 10/20/17 09:09 Dose: 1 applic Ondansetron HCl (Zofran Odt Tab*) 4 mg PO Q6H PRN PRN Reason: NAUSEA Vital Signs Temp Pulse Resp BP Pulse Ox 97.9 F 64 16 120/46 100 10/20/17 15:31 10/20/17 15:31 10/20/17 15:31 10/20/17 15:31 10/20/17 15:31 EXAM: LUNGS: Clear bilaterally HEART: reg rhythm ABDOMEN: Soft. +BS EXTREMITIES: Wound on LLE clean ASSESSMENT/PLAN: 1. Left hip fracture: 50% WB. PT/OT 2. Osteoporosis: Fosamax 3. DVT Prophylaxis: Lovenox 4. Advanced Directives: Has HCP. DNR 5. Orthostasis: Will d/c orthostatics
[2017-10-21] MEDS: Hydrocortisone 1% CREAM* 30 GM TUBE TOPICAL SCH ×2 (08:45→20:08)
[2017-10-21] MEDS: Enoxaparin(*) 40 MG/0.4 ML SYR SUBCUT SCH (11:39)
--- NOTE | 2017-10-21 12:40 | PMRUTEAM ---
PMRU: Goals Current Status: Nursing: Current Status Skin Deviations [Upper back] Rash Skin Deviations [Coccyx] Other Skin Deviations [Left Hip] Incision Skin Deviation Description [ declines need for hydrocortisone cream this Upper back] evening. Skin Deviation Description [ redness Coccyx] Skin Deviation Description [ incision x3 to LLE, all dressing changed with MD Left Hip] Bruising to LLE Physical Therapy: Current Status Bed Mobility Assistance Independent Transfer Moblility Assistance Supervision Transfer/Bed Mobility Rolling Walker Recommended Devices Ambulation Assistance Supervision Ambulation Assistive Devices Rolling Walker Number of Feet Patient 100 Ambulated Stairs Assistance Not Tested Occupational Therapy: Current Status Upper Body Dressing Supervision Lower Body Dressing Min Assist Bathing Min Assist Toileting Supervision Toilet Transfer Supervision Shower Transfer Contact Guard Assist Eating Independent Rec Therapy: Current Status Summary of Assessment and Pt. was open to conversation - very engaged and Clinical Impression identified with interests. Pt. was active in leisure prior to admission. Pt. was interested in continued leisure visits while on the unit. Treatment Goals Pt. will engage in leisure activities while on the unit. Treatment Plan Provide RT services and encourage involvement. Social Work: Current Status Discharge Plan return home with home care svs and family support Potential for Family Training TBD as pt lives alone Anticipated Discharge Home Destination Discharge With home care svs and family support Goals: Physical Therapy: Initial Goals Bed Mobility Assistance Independent Transfer Mobility Assistance Independent Transfer/Bed Mobility Rolling Walker Recommended Devices Ambulation Independent Ambulation Recommended Devices Rolling Walker Ambulation Distance 150 Stair Recommended Devices 1 rail Number of Stairs 5 Occupational Therapy: Initial Goals Goals to be Completed in (Days 7-14 ) Upper Body Bathing Routine Independent Lower Body Bathing Routine Modified Independent with Upper Body Dressing Routine Independent Lower Body Dressing Routine Modified Independent with Toilet Hygeine and Clothing Modified Independent with Management Routine Toilet Transfer Routine Modified Independent with Tub Transfer Routine Modified Independent with Tub Trasnfer Assistive Devices tub transfer bench Functional Transfers for ADL Modified Independent with Grooming Routine Independent Feeding Routine Independent Light Housekeeping Tasks Minimal Contact Assist Nutrition: Goals Intervention Goals 1. adequate po intake to support post-op healing and maintain stable wt and lean body mass 2. regulated bowel pattern without post-op constipation or diarrhea 3. serum glucose will normalize to within acceptable ranges Social Work: Goals Discharge Plan return home with home care svs and family support Potential for Family Training TBD as pt lives alone Anticipated Discharge Home Destination Discharge With home care svs and family support Care Plan: Care Plan ADL's - Improve/Maintain Start: 10/18/17 22:32 Freq: DAILY Status: Active Target: Protocol: Activity Type Activity Date Activity User E-Sign Co-Sign Detail Recorded Client Recorded Date Recorded By Document 10/20/17 14:23 [id number] 10/20/17 14:23 [id number] 10/20/17 14:23 PMRU Outcome: ADL's/ADL Transfers Orders/Interventions Occupational Therapy Evaluation & Treatment Communication Tool in Patient Room Device Yes Address Deficits Secondary To: left hip ORIF Patient to receive OT 5x/wk for 60-120 Therex min/day Self Care Management Group Therapy UE/LE ADL's with Assist Yes: Tyrell ADL Transfers with Assist Yes: Tyrell Toileting: Transfers,Clothing Management Yes: Tyrell ,Hygeine w/Assist Light Kitchen/Laundry w/Assist Yes: Tyrell Progression Toward Outcome/Goals Progressing Outcome/Goals Met Pt demonstrating increasing independence for distal LB dressing given use of AE. Needs encouragement to ambulate. DVT Prophylaxis- Improve/Maintain Start: 10/18/17 22:32 Freq: DAILY Status: Active Target: Protocol: Activity Type Activity Date Activity User E-Sign Co-Sign Detail Recorded Client Recorded Date Recorded By Document 10/21/17 08:00 [id number] 10/21/17 10:00 [id number] 10/21/17 08:00 PMRU Outcome: DVT Prophylaxis Outcome/Goals Remains Free of DVT TEDS Stockings on Every AM, Off at HS Progression Toward Outcome/Goals Progressing Discharge Planning - Improve/Maintain Start: 10/18/17 22:32 Freq: DAILY Status: Active Target: Protocol: Activity Type Activity Date Activity User E-Sign Co-Sign Detail Recorded Client Recorded Date Recorded By Document 10/21/17 00:52 [id number] 10/21/17 00:52 [id number] 10/21/17 00:52 PMRU Outcome: Discharge Planning Identify Patient Needs yes Update Patient Family No Outcome/Goals Demonstrates Understanding of Discharge Plan Progression Toward Outcome/Goals Progressing Mobility- Improve/Maintain Start: 10/18/17 22:32 Freq: DAILY Status: Active Target: Protocol: Activity Type Activity Date Activity User E-Sign Co-Sign Detail Recorded Client Recorded Date Recorded By Document 10/21/17 12:31 [id number] 10/21/17 12:31 [id number] 10/21/17 12:31 PMRU Outcome: Mobility Progression Toward Outcome/Goals Progressing Safety- Improve/Maintain Start: 10/18/17 22:32 Freq: DAILY Status: Active Target: Protocol: Activity Type Activity Date Activity User E-Sign Co-Sign Detail Recorded Client Recorded Date Recorded By Document 10/21/17 08:00 [id number] 10/21/17 10:00 [id number] 10/21/17 08:00 PMRU Outcome: Safety Outcome/Goals Remain Free of Injury or Harm Cooperates with Safety Measures for Least Restrictive Environment Prevent Falls/ Injury Progression Toward Outcome/Goals Progressing Skin- Improve/Maintain Start: 10/18/17 22:32 Freq: DAILY Status: Active Target: Protocol: Activity Type Activity Date Activity User E-Sign Co-Sign Detail Recorded Client Recorded Date Recorded By Document 10/21/17 08:00 [id number] 10/21/17 10:00 [id number] 10/21/17 08:00 PMRU Outcome: Skin Skin Risk Level High Skin Orders Dressing Change Air Mattress Outcome/Goals Maintain/ Improve Skin Intergrity Free from Decubitus Progression Toward Outcome/Goals Progressing Medicine Note: Length of Stay: [6 days] Anticipated Discharge Destination: Home Tentative Discharge Date: [10/27/17] Discharged to: [home]
--- NOTE | 2017-10-21 13:00 | PN ---
Progress Note - Progress Note Date of Service: 10/21/17 Note: No new issues overnight. Nursing and therapy notes reviewed. No chest pain, shortness of breath or abdominal pain. No light-headed or dizziness. Acetaminophen (Tylenol Tab*) 650 mg PO Q6H PRN PRN Reason: FEVER > 101 Alendronate Sodium (Fosamax (Nf)) 70 mg PO Q7D [facility] PRN Reason: Protocol Enoxaparin Sodium (Lovenox(*)) 40 mg SUBCUT Q24H [facility] Last Admin: 10/21/17 11:39 Dose: 40 mg Hydrocortisone (Hytone Cream 1%*) 1 applic TOPICAL BID [facility] Last Admin: 10/21/17 08:45 Dose: 1 applic Ondansetron HCl (Zofran Odt Tab*) 4 mg PO Q6H PRN PRN Reason: NAUSEA Vital Signs 10/20/17 10/20/17 10/21/17 15:31 20:00 00:00 Temperature 97.9 F Pulse Rate 64 Respiratory 16 16 16 Rate Blood Pressure 120/46 (mmHg) O2 Sat by Pulse 100 100 Oximetry 10/21/17 05:40 Temperature 98.8 F Pulse Rate 77 Respiratory 18 Rate Blood Pressure 129/57 (mmHg) O2 Sat by Pulse 100 Oximetry EXAM: GEN: no acute distress. Alert and appropriate. LUNGS: Clear bilaterally HEART: regular rate and rhythm ABDOMEN: Soft. +BS, non-tender, non-distended. EXTREMITIES: no edema. ASSESSMENT/PLAN: 87yo woman with Left hip fracutre 1. Left hip fracture: 50% WB. PT/OT. f/u with Dr. Ayers and needs x-rays of left hip 2 wks post-op 10/27/17. 2. Osteoporosis: Fosamax qwk 3. DVT Prophylaxis: Lovenox. Teach self administration. 4. Advanced Directives: Has HCP. DNR 5. Orthostasis: Resolved. 6. Discussed at IPOC. Anticipate d/c on 10/27. See if can have appt with Dr. Ayers in office on same day.
[2017-10-22] MEDS: Hydrocortisone 1% CREAM* 30 GM TUBE TOPICAL SCH ×3 (08:23→19:56)
[2017-10-22] MEDS: Enoxaparin(*) 40 MG/0.4 ML SYR SUBCUT SCH (10:40)
--- NOTE | 2017-10-22 12:28 | PN ---
Progress Note - Progress Note Date of Service: 10/22/17 Note: No new issues overnight. Nursing and therapy notes reviewed. No chest pain, shortness of breath or abdominal pain. No light-headed or dizziness. Acetaminophen (Tylenol Tab*) 650 mg PO Q6H PRN PRN Reason: FEVER > 101 Alendronate Sodium (Fosamax (Nf)) 70 mg PO Q7D [facility] PRN Reason: Protocol Enoxaparin Sodium (Lovenox(*)) 40 mg SUBCUT Q24H [facility] Last Admin: 10/22/17 10:40 Dose: 40 mg Hydrocortisone (Hytone Cream 1%*) 1 applic TOPICAL BID [facility] Last Admin: 10/22/17 08:33 Dose: 1 applic Ondansetron HCl (Zofran Odt Tab*) 4 mg PO Q6H PRN PRN Reason: NAUSEA Vital Signs 10/21/17 10/21/17 10/21/17 15:40 17:34 23:45 Temperature 97.6 F Pulse Rate 67 Respiratory 16 16 16 Rate Blood Pressure 138/57 (mmHg) O2 Sat by Pulse 100 100 Oximetry 10/22/17 10/22/17 05:47 07:36 Temperature 98.2 F Pulse Rate 68 Respiratory 16 18 Rate Blood Pressure 142/60 (mmHg) O2 Sat by Pulse 99 99 Oximetry EXAM: GEN: no acute distress. Alert and appropriate. LUNGS: Clear bilaterally HEART: regular rate and rhythm ABDOMEN: Soft. +BS, non-tender, non-distended. EXTREMITIES: no edema. ASSESSMENT/PLAN: 87yo woman with Left hip fracutre 1. Left hip fracture: 50% WB. PT/OT. f/u with Dr. Ayers and needs x-rays of left hip 2 wks post-op 10/27/17. 2. Osteoporosis: Fosamax qwk 3. DVT Prophylaxis: Lovenox. Teach self administration. 4. Advanced Directives: Has HCP. DNR 5. Orthostasis: Resolved. 6. Anticipate d/c on 10/27. SW helping to see if can have appt with Dr. Ayers in office on same day.
[2017-10-23] MEDS ORDERED: Alendronate (NF) 70 MG TAB PO SCH (06:00)
--- NOTE | 2017-10-23 11:08 | PN ---
Progress Note - Progress Note Date of Service: 10/23/17 Note: No new issues overnight. Nursing and therapy notes reviewed. No chest pain, shortness of breath or abdominal pain. Acetaminophen (Tylenol Tab*) 650 mg PO Q6H PRN PRN Reason: FEVER > 101 Alendronate Sodium (Fosamax (Nf)) 70 mg PO Q7D [facility] PRN Reason: Protocol Last Admin: 10/23/17 05:43 Dose: 70 mg Enoxaparin Sodium (Lovenox(*)) 40 mg SUBCUT Q24H [facility] Last Admin: 10/22/17 10:40 Dose: 40 mg Hydrocortisone (Hytone Cream 1%*) 1 applic TOPICAL BID [facility] Last Admin: 10/22/17 19:56 Dose: Not Given Ondansetron HCl (Zofran Odt Tab*) 4 mg PO Q6H PRN PRN Reason: NAUSEA Vital Signs 10/22/17 10/22/17 10/23/17 15:25 17:03 05:51 Temperature 97.4 F 99.6 F Pulse Rate 72 69 Respiratory 20 20 Rate Blood Pressure 117/51 148/63 (mmHg) O2 Sat by Pulse 99 99 99 Oximetry EXAM: GEN: no acute distress. Alert and appropriate. LUNGS: Clear bilaterally HEART: regular rate and rhythm ABDOMEN: Soft. +BS, non-tender, non-distended. EXTREMITIES: no edema. ASSESSMENT/PLAN: 87yo woman with Left hip fracutre 1. Left hip fracture: 50% WB. PT/OT. f/u with Dr. Ayers and needs x-rays of left hip 2 wks post-op 10/27/17. 2. Osteoporosis: Fosamax qwk 3. DVT Prophylaxis: Lovenox. Teach self administration. 4. Advanced Directives: Has HCP. DNR 5. Orthostasis: Resolved. 6. Anticipate d/c on 10/27. SW helping to see if can have appt with Dr. Ayers in office on same day.
[2017-10-23] MEDS: Hydrocortisone 1% CREAM* 30 GM TUBE TOPICAL SCH ×2 (11:10→20:06)
[2017-10-23] MEDS: Enoxaparin(*) 40 MG/0.4 ML SYR SUBCUT SCH (11:34)
[2017-10-24] MEDS: Hydrocortisone 1% CREAM* 30 GM TUBE TOPICAL SCH ×2 (10:44→19:57)
[2017-10-24] MEDS: Enoxaparin(*) 40 MG/0.4 ML SYR SUBCUT SCH (10:45)
--- NOTE | 2017-10-24 14:38 | PN ---
Progress Note - Progress Note Date of Service: 10/24/17 Note: Christina visited. She has no complaints. She is looking forward to going home. Feels ok. Current Medications Acetaminophen (Tylenol Tab*) 650 mg PO Q6H PRN PRN Reason: FEVER > 101 Alendronate Sodium (Fosamax (Nf)) 70 mg PO Q7D [facility] PRN Reason: Protocol Last Admin: 10/23/17 05:43 Dose: 70 mg Enoxaparin Sodium (Lovenox(*)) 40 mg SUBCUT Q24H [facility] Last Admin: 10/24/17 10:45 Dose: 40 mg Hydrocortisone (Hytone Cream 1%*) 1 applic TOPICAL BID [facility] Last Admin: 10/24/17 10:44 Dose: 1 applic Ondansetron HCl (Zofran Odt Tab*) 4 mg PO Q6H PRN PRN Reason: NAUSEA Vital Signs Temp Pulse Resp BP Pulse Ox 100.9 F 77 18 135/53 96 10/24/17 05:01 10/24/17 05:01 10/24/17 05:01 10/24/17 05:01 10/24/17 09:25 EXAM: LUNGS: Clear bilaterally HEART: reg rhythm ABDOMEN: Soft. +BS EXTREMITIES: Wound on LLE clean ASSESSMENT/PLAN: 1. Left hip fracture: 50% WB. PT/OT 2. Osteoporosis: Fosamax 3. DVT Prophylaxis: Lovenox 4. Advanced Directives: Has HCP. DNR
[2017-10-25] MEDS: Hydrocortisone 1% CREAM* 30 GM TUBE TOPICAL SCH ×2 (08:37→19:37)
[2017-10-25] MEDS: Enoxaparin(*) 40 MG/0.4 ML SYR SUBCUT SCH (11:09)
--- NOTE | 2017-10-25 12:36 | PMRUTEAM ---
PMRU: Goals Current Status: Nursing: Current Status Skin Deviations [Upper back] Rash Skin Deviations [Coccyx] Other Skin Deviations [Left Hip] Incision Skin Deviation Description [ Hydrocortisone cream applied Upper back] Skin Deviation Description [ redness Coccyx] Skin Deviation Description [ [employer], carin intact Left Hip] Physical Therapy: Current Status Bed Mobility Assistance Supervision Transfer Moblility Assistance Supervision,Contact Guard Assist Transfer/Bed Mobility Rolling Walker Recommended Devices Transfer Mobility Comment Pt. is able to perform a SPT using a 2 w/w S x 1. Ambulation Assistance Supervision,Contact Guard Assist Ambulation Assistive Devices Rolling Walker Number of Feet Patient 150 Ambulated Ambulation Comment Pt. presents a step to type gait and is able to maintain PWB L le. Stairs Assistance Supervision Stairs Recommended Devices Two Rails Number of Stairs 5 Occupational Therapy: Current Status Upper Body Dressing Supervision Lower Body Dressing Supervision Bathing Supervision Toileting Supervision Toilet Transfer Supervision Shower Transfer Supervision,Contact Guard Assist Eating Independent Rec Therapy: Current Status Summary of Assessment and RT assessment complete and pt. is aware RT Clinical Impression services, pt. is engaged in leisure visits and has activities to complete in her room. Treatment Goals Pt. will engage in leisure activities while on the unit. Treatment Plan Provide RT services and encourage involvement. Social Work: Current Status Discharge Plan return home with home care svs and support from friends Potential for Family Training n/a pt lives alone Anticipated Discharge Home Destination Discharge With home care svs and support from friends Nutrition: Current Status Monitoring pt remains independent w/eating. on average, consuming ~75% of meals. She happily reports that her bowels are "regulating" and that her BMs are becoming more formed. She is thankful for advice given on assessment 10/18. Snacks cont to be offered to her daily at 3pm. She states these are very good and she would like to keep receiving them. BG (117) also returning to baseline. Appears to be meeting goals as outlined below. Goals: Physical Therapy: Initial Goals Bed Mobility Assistance Independent Transfer Mobility Assistance Independent Transfer/Bed Mobility Rolling Walker Recommended Devices Ambulation Independent Ambulation Recommended Devices Rolling Walker Ambulation Distance 150 Stair Recommended Devices Two Rails Number of Stairs 5 Physical Therapy: Updated Goals Bed Mobility Assistance Independent Transfer Mobility Assistance Independent Transfer/Bed Mobility Rolling Walker Recommended Devices Ambulation Assistance Independent Ambulation Assistive Devices Rolling Walker Ambulation Distance (ft) 150 Stairs Assistance Independent Stairs Recommended Devices Two Rails Number of Stairs 5 Home Exercise Program Independent Assistance Occupational Therapy: Initial Goals Goals to be Completed in (Days 7-14 ) Upper Body Bathing Routine Independent Lower Body Bathing Routine Modified Independent with Upper Body Dressing Routine Independent Lower Body Dressing Routine Modified Independent with Toilet Hygeine and Clothing Modified Independent with Management Routine Toilet Transfer Routine Modified Independent with Tub Transfer Routine Modified Independent with Tub Trasnfer Assistive Devices tub transfer bench Functional Transfers for ADL Modified Independent with Grooming Routine Independent Feeding Routine Independent Light Housekeeping Tasks Minimal Contact Assist Nutrition: Goals Intervention Goals 1. adequate po intake to support post-op healing and maintain stable wt and lean body mass 2. regulated bowel pattern without post-op constipation or diarrhea 3. serum glucose will normalize to within acceptable ranges Social Work: Goals Discharge Plan return home with home care svs and support from friends Potential for Family Training n/a pt lives alone Anticipated Discharge Home Destination Discharge With home care svs and support from friends Care Plan: Care Plan ADL's - Improve/Maintain Start: 10/18/17 22:32 Freq: DAILY Status: Active Target: Protocol: Activity Type Activity Date Activity User E-Sign Co-Sign Detail Recorded Client Recorded Date Recorded By Document 10/20/17 14:23 [id number] 10/20/17 14:23 [id number] 10/20/17 14:23 PMRU Outcome: ADL's/ADL Transfers Orders/Interventions Occupational Therapy Evaluation & Treatment Communication Tool in Patient Room Device Yes Address Deficits Secondary To: left hip ORIF Patient to receive OT 5x/wk for 60-120 Therex min/day Self Care Management Group Therapy UE/LE ADL's with Assist Yes: Tyrell ADL Transfers with Assist Yes: Tyrell Toileting: Transfers,Clothing Management Yes: Tyrell ,Hygeine w/Assist Light Kitchen/Laundry w/Assist Yes: Tyrell Progression Toward Outcome/Goals Progressing Outcome/Goals Met Pt demonstrating increasing independence for distal LB dressing given use of AE. Needs encouragement to ambulate. DVT Prophylaxis- Improve/Maintain Start: 10/18/17 22:32 Freq: DAILY Status: Active Target: Protocol: Activity Type Activity Date Activity User E-Sign Co-Sign Detail Recorded Client Recorded Date Recorded By Document 10/25/17 09:23 [id number] 10/25/17 09:23 [id number] 10/25/17 09:23 PMRU Outcome: DVT Prophylaxis Outcome/Goals Remains Free of DVT Complies with DVT Prophylaxis /Treatment Progression Toward Outcome/Goals Progressing Discharge Planning - Improve/Maintain Start: 10/18/17 22:32 Freq: DAILY Status: Active Target: Protocol: Activity Type Activity Date Activity User E-Sign Co-Sign Detail Recorded Client Recorded Date Recorded By Document 10/25/17 09:23 [id number] 10/25/17 09:23 [id number] 10/25/17 09:23 PMRU Outcome: Discharge Planning Identify Patient Needs yes Update Patient Family No Outcome/Goals Demonstrates Understanding of Discharge Plan Progression Toward Outcome/Goals Progressing Mobility- Improve/Maintain Start: 10/18/17 22:32 Freq: DAILY Status: Active Target: Protocol: Activity Type Activity Date Activity User E-Sign Co-Sign Detail Recorded Client Recorded Date Recorded By Document 10/22/17 18:06 [id number] 10/22/17 18:06 [id number] 10/22/17 18:06 PMRU Outcome: Mobility Physical Therapy Evaluation and Yes Treatment Activity OOB with Assistance Yes Device Yes Assistance Yes Patient to be seen 5x/wk for 60-120 min/ Therex day for: Mobility Training Gait Training Balance Other Other Therapy Comment patient is 50% WB on LLE Progression Toward Outcome/Goals Progressing Bed Mobility Yes: independent Transfers Yes: independent with RW Gait x ft Yes: independetn with RW Up/Down Stairs Yes: independent up/ down 20 stairs with rails and/ or crutches Goal Comment pateint will maintain 50% weightbearing in all stainding mobiltiy. Safety- Improve/Maintain Start: 10/18/17 22:32 Freq: DAILY Status: Active Target: Protocol: Activity Type Activity Date Activity User E-Sign Co-Sign Detail Recorded Client Recorded Date Recorded By Document 10/25/17 09:23 [id number] 10/25/17 09:23 [id number] 10/25/17 09:23 PMRU Outcome: Safety Outcome/Goals Remain Free of Injury or Harm Cooperates with Safety Measures for Least Restrictive Environment Prevent Falls/ Injury Progression Toward Outcome/Goals Progressing Skin- Improve/Maintain Start: 10/18/17 22:32 Freq: DAILY Status: Active Target: Protocol: Activity Type Activity Date Activity User E-Sign Co-Sign Detail Recorded Client Recorded Date Recorded By Document 10/25/17 09:23 [id number] 10/25/17 09:23 [id number] 10/25/17 09:23 PMRU Outcome: Skin Skin Risk Level Medium Skin Orders Teach Patient Air Mattress Outcome/Goals Maintain/ Improve Skin Intergrity Free from Decubitus Surgical Incisions Healing Progression Toward Outcome/Goals Progressing Medicine Note: Length of Stay: 2 days Anticipated Discharge Destination: Home Tentative Discharge Date: 10/27/16 Discharged to: Home
--- NOTE | 2017-10-25 16:32 | PN ---
Progress Note - Progress Note Date of Service: 10/25/17 Note: Christina was visited. She was discussed in interdisciplinary team rounds. Overall, doing pretty well. Feels ok. Current Medications Acetaminophen (Tylenol Tab*) 650 mg PO Q6H PRN PRN Reason: FEVER > 101 Alendronate Sodium (Fosamax (Nf)) 70 mg PO Q7D [facility] PRN Reason: Protocol Last Admin: 10/23/17 05:43 Dose: 70 mg Enoxaparin Sodium (Lovenox(*)) 40 mg SUBCUT Q24H [facility] Last Admin: 10/25/17 11:09 Dose: 40 mg Hydrocortisone (Hytone Cream 1%*) 1 applic TOPICAL BID [facility] Last Admin: 10/25/17 08:37 Dose: 1 applic Ondansetron HCl (Zofran Odt Tab*) 4 mg PO Q6H PRN PRN Reason: NAUSEA Vital Signs Temp Pulse Resp BP Pulse Ox 98.4 F 83 16 133/73 100 10/25/17 15:36 10/25/17 15:36 10/25/17 15:36 10/25/17 15:36 10/25/17 15:36 EXAM: LUNGS: Clear bilaterally HEART: reg rhythm ABDOMEN: Soft. +BS EXTREMITIES: Wound on LLE clean ASSESSMENT/PLAN: 1. Left hip fracture: 50% WB. PT/OT 2. Osteoporosis: Fosamax 3. DVT Prophylaxis: Lovenox 4. Advanced Directives: Has HCP. DNR
[2017-10-26] MEDS: Hydrocortisone 1% CREAM* 30 GM TUBE TOPICAL SCH ×2 (09:21→19:05)
[2017-10-26 09:28] LABS: ABS Basophils 0 10^3/ul (0-0.2); ABS Eosinophils 0.2 10^3/ul (0-0.6); ABS Lymphocytes 1.4 10^3/ul (1.0-4.8); ABS Monocytes 0.5 10^3/ul (0-0.8); ABS Neutrophils 4.2 10^3/ul (1.5-7.7); ABS Nucleated RBC 0.02 10^3/ul; Eosinophil % 2.7 % (0-6); Hematocrit 39 % (35-47); Hemoglobin 13.1 g/dl (12.0-16.0); Lymphocyte % 22.2 % (25-47); Mean Corpuscular HGB Conc 34 g/dl (31-36); Mean Corpuscular Hemoglobin 32 pg (27-31); Mean Corpuscular Volume 95 fL (80-97); Mean Platelet Volume 8 um3 (7.4-10.4); Nucleated Red Blood Cells % 0.3; Platelet Count 315 10^3/ul (150-450); Red Blood Count 4.12 10^6/ul (4.0-5.4); Red Cell Distribution Width 13 % (10.5-15); White Blood Count 6.3 10^3/ul (3.5-10.8)
[2017-10-26 10:37] LABS: EGFR Non-African American 78.1 (>60)
[2017-10-26] MEDS: Enoxaparin(*) 40 MG/0.4 ML SYR SUBCUT SCH (12:40)
--- NOTE | 2017-10-26 19:22 | PN ---
Progress Note - Progress Note Date of Service: 10/26/17 Note: Christina visited. For discharge tomorrow. Will remove carin prior to discharge. Current Medications Acetaminophen (Tylenol Tab*) 650 mg PO Q6H PRN PRN Reason: FEVER > 101 Alendronate Sodium (Fosamax (Nf)) 70 mg PO Q7D NAVI PRN Reason: Protocol Last Admin: 10/23/17 05:43 Dose: 70 mg Enoxaparin Sodium (Lovenox(*)) 40 mg SUBCUT Q24H [facility] Last Admin: 10/26/17 12:40 Dose: 40 mg Hydrocortisone (Hytone Cream 1%*) 1 applic TOPICAL BID [facility] Last Admin: 10/26/17 19:05 Dose: Not Given Ondansetron HCl (Zofran Odt Tab*) 4 mg PO Q6H PRN PRN Reason: NAUSEA Laboratory Results - last 24 hr 10/26/17 10/26/17 09:10 09:10 WBC 6.3 RBC 4.12 Hgb 13.1 Hct 39 MCV 95 MCH 32 H MCHC 34 RDW 13 Plt Count 315 MPV 8 Neut % (Auto) 67.2 Lymph % (Auto) 22.2 L [place] % (Auto) 7.5 Eos % (Auto) 2.7 Baso % (Auto) 0.4 Absolute Neuts (auto) 4.2 Absolute Lymphs (auto) 1.4 Absolute Monos (auto) 0.5 Absolute Eos (auto) 0.2 Absolute Basos (auto) 0 Absolute Nucleated RBC 0.02 Nucleated RBC % 0.3 Sodium 136 Potassium 3.4 L Chloride 101 Carbon Dioxide 29 Anion Gap 6 BUN 10 Creatinine 0.71 Est GFR ( Amer) 100.4 Est GFR (Non-Af Amer) 78.1 BUN/Creatinine Ratio 14.1 Glucose 175 H Calcium 9.0 Total Bilirubin 0.50 AST 20 ALT 16 Alkaline Phosphatase 108 H Total Protein 6.1 L Albumin 3.5 Globulin 2.6 Albumin/Globulin Ratio 1.3 Vital Signs Temp Pulse Resp BP Pulse Ox 98.5 F 73 18 109/44 99 10/26/17 15:33 10/26/17 15:33 10/26/17 18:03 10/26/17 15:33 10/26/17 18:03 EXAM: LUNGS: Clear bilaterally HEART: reg rhythm ABDOMEN: Soft. +BS EXTREMITIES: Wound on LLE clean ASSESSMENT/PLAN: 1. Left hip fracture: 50% WB. PT/OT 2. Osteoporosis: Fosamax 3. DVT Prophylaxis: Lovenox 4. Advanced Directives: Has HCP. DNR 5. Hypokalemia: replenish K
[2017-10-26] MEDS: Potassium Chlor TAB* 20 MEQ TAB.ER PO SCH (21:02)
[2017-10-27 05:48] VITALS: BP 127/58
[2017-10-27] MEDS: Hydrocortisone 1% CREAM* 30 GM TUBE TOPICAL SCH (09:11)
[2017-10-27] MEDS: Potassium Chlor TAB* 20 MEQ TAB.ER PO SCH (09:47)
[2017-10-27] MEDS: Enoxaparin(*) 40 MG/0.4 ML SYR SUBCUT SCH (09:47)
--- NOTE | 2017-10-28 20:34 | DS ---
CC: Dr. Reinaldo Cunningham * DISCHARGE SUMMARY: DATE OF ADMISSION: 10/18/17 DATE OF DISCHARGE: 10/27/17 DISCHARGE DIAGNOSES: 1. Left hip fracture. 2. Hypertension. 3. Syncope. 4. Hyperlipidemia. 5. Impaired fasting glucose. HISTORY OF ILLNESS AND HOSPITAL COURSE: For complete history of the events leading up to her rehab stay, please see the history and physical dictated by me Dr. Krystal Snowden on 10/18/17. While on the rehab unit, the patient was tested for orthostatic hypotension. Her vital signs did not reflect that she was orthostatic. The patient was started on Fosamax for osteoporosis. The patient otherwise seemed to be medically stable. She was seen by both Physical and Occupational Therapy and made good gains with both disciplines. With physical therapy, at the time of admission, the patient required contact guard to min assist to do a transfer. She was able to ambulate 8 feet with contact guard. With occupational therapy at the time of admission, the patient required mod assist for lower body dressing, supervision for upper body dressing , min assist for bathing. She could toilet herself with contact guard. By the time of discharge, the patient was independent in transfers. She was independent ambulating 150 feet. She was independent going up and down 5 steps. She was independent with her activities of daily living. She was discharged home 10/27/17. DISCHARGE DIET: Regular. DISCHARGE MEDICATIONS: 1. Lovenox 40 mg every 24 hours for 7 days. 2. Fosamax 70 mg every 7 days. SERVICES AFTER DISCHARGE: Through visiting nurse service. She will have home nursing, home physical therapy, and a home health aide. Follow up with Dr. Reinaldo Cunningham. She will also follow up with her orthopedic surgeon, Dr. Fritz Ayers, on the day of discharge. [id number]/[facility] #: [id number] MTDD
== END 2017-10-27 13:30 | disposition home health service (06) | DRG 561 ==
LOC: PMRU 11:01
PROVIDERS: ADMIT Physical Medicine & Rehabilitation; ATTEND Physical Medicine & Rehabilitation
PROC: F07Z5ZZ Bed Mobility Treatment (ICD-10-PCS; principal; 2017-10-18)
PROC: F07Z9ZZ Gait Training/Functional Ambulation Treatment (ICD-10-PCS; 2017-10-18)
PROC: F07Z8ZZ Transfer Training Treatment (ICD-10-PCS; 2017-10-18)
PROC: F08Z0ZZ Bathing/Showering Techniques Treatment (ICD-10-PCS; 2017-10-18)
PROC: F08Z1ZZ Dressing Techniques Treatment (ICD-10-PCS; 2017-10-18)
PROC: F08Z3ZZ Feeding/Eating Treatment (ICD-10-PCS; 2017-10-18)
DX: S72.142D Displaced intertrochanteric fracture of left femur, subsequent encounter for closed fracture with routine healing (principal); I34.1 Nonrheumatic mitral (valve) prolapse; E53.8 Deficiency of other specified B group vitamins; I10 Essential (primary) hypertension; S72.22XD Displaced subtrochanteric fracture of left femur, subsequent encounter for closed fracture with routine healing; W18.30XD Fall on same level, unspecified, subsequent encounter; E78.5 Hyperlipidemia, unspecified; R73.01 Impaired fasting glucose; I95.1 Orthostatic hypotension; M81.0 Age-related osteoporosis without current pathological fracture; M85.80 Other specified disorders of bone density and structure, unspecified site; E55.9 Vitamin D deficiency, unspecified; Z79.1 Long term (current) use of non-steroidal anti-inflammatories (NSAID); Z79.899 Other long term (current) drug therapy; E87.6 Hypokalemia; Z66 Do not resuscitate; Z88.8 Allergy status to other drugs, medicaments and biological substances; Z91.048 Other nonmedicinal substance allergy status
CPT/HCPCS: 36415; 80053; 85025; A9270-GY; J1650